=== PATIENT | male | born 1980 | race Caucasian/White ===

== ENCOUNTER 2018-04-18 07:47 | Emergency (ER) | payer OTHER ==
[2018-04-18] MEDS: FLUCONAZOLE 100 MG TAB PO (10:04)
[2018-04-18] MEDS: LORATADINE 10 MG TAB PO (10:04)
== END 2018-04-18 10:05 | disposition home or self-care (01) ==
LOC: M ED 07:47
DX: L29.8 Other pruritus (principal); L74.0 Miliaria rubra
CPT/HCPCS: 99282

== ENCOUNTER 2019-05-13 09:14 | Emergency (ER) | payer OTHER ==
[~2019-05-13] VITALS: Ht 180.3 cm; Wt 100.0 kg
[2019-05-13] MEDS ORDERED: NON-325T5 PO (09:21)
[2019-05-13] MEDS ORDERED: TERB250T12 PO (09:21)
[2019-05-13] MEDS ORDERED: IBUP-1022 PO (09:21)
[2019-05-13] MEDS ORDERED: NS 1,000 ML IV ONE (10:15)
[2019-05-13] MEDS ORDERED: MORPHINE 4 MG/ML 1ML VIAL/SYRINGE (J2270) IV ONE (10:15)
[2019-05-13] MEDS ORDERED: ONDANSETRON 4MG/2ML VIAL (J2405) IV ONE (10:45)
[2019-05-13 10:50] LABS: BASO # 0.1 10^3/uL (0.0-0.2); BASO % 1.1 % (0.0-1.0); EOS # 0.2 10^3/uL (0.0-0.50); EOS % 4.7 % (0.0-3.0); HEMATOCRIT 48.1 % (42.0-52.0); HEMOGLOBIN 16.1 g/dl (13.5-17.5); LYMPH # 1.8 10^3/uL (1.5-4.5); LYMPH % 37.9 % (24.0-44.0); MEAN CORPUSCULAR HEMOGLOBIN 30.1 pg (27.0-33.0); MEAN CORPUSCULAR HGB CONC 33.5 g/dl (32.0-36.5); MEAN CORPUSCULAR VOLUME 89.9 fl (80.0-96.0); MONO # 0.5 10^3/uL (0.0-0.8); MONO % 9.9 % (0.0-5.0); NEUTROPHILS # 2.1 10^3/uL (1.8-7.7); NEUTROPHILS % 45.8 % (36.0-66.0); PLATELET COUNT, AUTOMATED 188 10^3/uL (150-450); RED BLOOD COUNT 5.35 10^6/uL (4.30-6.10); WHITE BLOOD COUNT 4.7 10^3/uL (4.0-10.0)
[2019-05-13 11:12] LABS: ALBUMIN 4.4 GM/DL (3.2-5.2); BILIRUBIN,DIRECT 0.1 MG/DL (0.0-0.2); BILIRUBIN,TOTAL 0.5 MG/DL (0.2-1.0); TOTAL PROTEIN 7.7 GM/DL (6.4-8.2)
[2019-05-13] MEDS ORDERED: ISOVUE-370 76% 100ML VIAL (Q9967) As Ordered ONE (11:21)
[2019-05-13] MEDS ORDERED: BACT800T5 PO (12:22)
[2019-05-13 12:35] VITALS: BP 139/93
--- NOTE | 2019-05-13 12:38 | REP ---
CT ABDOMEN AND PELVIS WITH IV CONTRAST: TECHNIQUE: Axial contrast enhanced images from the lung bases to the pubic symphysis using 100 mL Isovue 370 intravenous contrast material with multiplanar reformations. Visualized lung bases are clear. The liver, spleen, adrenals, pancreas and kidneys are unremarkable. There is no abdominal aortic aneurysm. There is no adenopathy. There is no free air or free fluid. There is no bowel wall thickening. No pelvis mass is seen. Urinary bladder is mildly distended and grossly unremarkable. Reportedly, the patient had surgery for a hernia repair with an incision in the midline of the anterior abdominal wall. There is diffuse streaky density in the superficial anterior abdominal wall to midline. This is compatible with edema, with possible inflammatory change and cellulitis. No abscess collection is seen. IMPRESSION: In the midline of the anterior abdominal wall, there is streaky density representing edema and possible inflammatory change/cellulitis. No abscess collection is seen. No intra-abdominal or pelvic abnormality seen. Electronically Signed by Erikc Parker MD 05/13/2019 01:20 P
== END 2019-05-13 12:37 | disposition home or self-care (01) ==
LOC: M ED 09:14
DX: L02.211 Cutaneous abscess of abdominal wall (principal); Z98.890 Other specified postprocedural states; Z79.899 Other long term (current) drug therapy
CPT/HCPCS: 74177; 80047; 80076; 83605; 85025; 87040; 87070; 87077; 96361; 96374; 96375; 99284; J2270; J2405; Q9967

== ENCOUNTER 2021-03-11 17:53 | Inpatient (IN) | payer OTHER ==
[~2021-03-11] VITALS: Ht 180.3 cm; Wt 113.8 kg
[~2021-03-11 17:53] MED LIST: ACET32TAB PO; BACT800T5 PO; IBUP-1022 PO; TERB250T12 PO
[2021-03-11] MEDS ORDERED: CYCL5TAB PO (18:12)
[2021-03-11] MEDS ORDERED: BUSP15TA47 PO (18:12)
[2021-03-11] MEDS ORDERED: MELO15TA28 PO (18:12)
[2021-03-11] MEDS ORDERED: LOSA50TA5 PO (18:12)
[2021-03-11] MEDS ORDERED: AIMO70IN SQ (18:12)
[2021-03-11] MEDS ORDERED: METO1TAB7 PO (18:12)
[2021-03-11] MEDS ORDERED: AMIT75TA PO (18:12)
[2021-03-11] MEDS ORDERED: ESCITALOPRAM PO (18:12)
[2021-03-11] MEDS ORDERED: NS 1,000 ML IV SCH (18:50)
[2021-03-11] MEDS ORDERED: METOCLOPRAMIDE INJ 10MG/2ML VIAL (J2765 PER 1) IV ONE (18:50)
[2021-03-11] MEDS ORDERED: MECLIZINE 25 MG TABLET PO ONE (18:50)
--- NOTE | 2021-03-11 19:37 | ECGEPIP ---
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
--- NOTE | 2021-03-11 19:45 | REP ---
INDICATION: CHEST PAIN COMPARISON: None. TECHNIQUE: PA and lateral. FINDINGS: The mediastinum and cardiac silhouette are normal. The lung workman are clear and without acute consolidation, effusion, or pneumothorax. The skeletal structures are intact and normal. IMPRESSION: No acute cardiopulmonary process. <Electronically signed by Prudencio Foster > 03/11/211940
--- NOTE | 2021-03-11 20:53 | REPVR ---
PROCEDURE INFORMATION: Exam: CT Head Without Contrast Exam date and time: 03/11/2021 7:39 PM Age: 41 years old Clinical indication: Pain; Headache; Additional info: Headache vomiting TECHNIQUE: Imaging protocol: Computed tomography of the head without contrast. Radiation optimization: All CT scans at this facility use at least one of these dose optimization techniques: automated exposure control; mA and/or kV adjustment per patient size (includes targeted exams where dose is matched to clinical indication); or iterative reconstruction. COMPARISON: No relevant prior studies available. FINDINGS: Brain: There is no acute cortical infarction, intracranial hemorrhage or mass. Cerebral ventricles: No ventriculomegaly. Paranasal sinuses: Visualized sinuses are unremarkable. No fluid levels. Mastoid air cells: Visualized mastoid air cells are well aerated. Bones/joints: Unremarkable. No acute fracture. Soft tissues: Unremarkable. IMPRESSION: No acute intracranial findings. Electronically signed by: Linnette Shah On 03/11/2021 20:53:07 PM
[2021-03-11 21:06] LABS: BASO % 0.5 % (0.0-1.0); EOS # 0.1 10^3/uL (0.0-0.5); EOS % 0.7 % (0.0-3.0); HEMATOCRIT 46.3 % (42.0-52.0); HEMOGLOBIN 15.4 g/dl (13.5-17.5); LYMPH # 1.2 10^3/uL (1.5-5.0); LYMPH % 15.4 % (24.0-44.0); MEAN CORPUSCULAR HEMOGLOBIN 29.2 pg (27.0-33.0); MEAN CORPUSCULAR HGB CONC 33.3 g/dl (32.0-36.5); MEAN CORPUSCULAR VOLUME 87.7 fl (80.0-96.0); MONO # 0.5 10^3/uL (0.0-0.8); MONO % 5.8 % (2.0-8.0); NEUTROPHILS # 6.2 10^3/uL (1.5-8.5); NEUTROPHILS % 77.2 % (36.0-66.0); PLATELET COUNT, AUTOMATED 189 10^3/uL (150-450); RED BLOOD COUNT 5.28 10^6/uL (4.30-6.10)
[2021-03-11 22:04] LABS: INR 0.9; PROTHROMBIN TIME 12.3 SECONDS (12.5-14.3)
[2021-03-11 22:07] LABS: D-DIMER QUANT 359.07 ng/ml (<500)
[2021-03-11 22:54] LABS: ALBUMIN 3.8 GM/DL (3.2-5.2); ALT/SGPT 54 U/L (12-78); BILIRUBIN,DIRECT 0.1 MG/DL (0.0-0.2); BILIRUBIN,TOTAL 0.6 MG/DL (0.2-1.0); BLOOD UREA NITROGEN 12 MG/DL (7-18); CALCIUM LEVEL 9.7 MG/DL (8.5-10.1); CARBON DIOXIDE LEVEL 29 MEQ/L (21-32); CHLORIDE LEVEL 103 MEQ/L (98-107); CK-MB VALUE MASS 4.1 NG/ML (<3.6); CPK CREATINE PHOSPHOKINASE 4402 U/L (39-308); CREATININE FOR GFR 0.88 MG/DL (0.70-1.30); FREE T4 0.97 NG/DL (0.76-1.46); GLOMERULAR FILTRATION RATE > 60.0 (>60); GLUCOSE, FASTING 111 MG/DL (70-100); MB/CK RELATIVE INDEX 0.09 (< OR =4); NT-PRO BNP < 5 PG/ML (<125); POTASSIUM SERUM 3.9 MEQ/L (3.5-5.1); SODIUM LEVEL 139 MEQ/L (136-145); THYROID STIMULATING HORMONE 0.772 uIU/ML (0.358-3.740); TOTAL PROTEIN 7.5 GM/DL (6.4-8.2); TROPONIN I < 0.02 NG/ML (< 0.10)
--- NOTE | 2021-03-11 23:37 | HPEPDOC ---
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 He tells me that had the symptoms in the past. Tells me during the episode after vomiting he felt substernal chest pain it does not radiate lasted 30 seconds and felt like a burning sensation he denies a history of GERD. He tells me since being in the hospital he is no longer sweating and not having any chest pain but he has still feels dizzy and when ED staff tried to stand him up he almost fell over. He doesn't feel nauseous and hasn't vomited since being here. He does endorse some lower extremity muscle pain bilaterally he states he stands up on his feet all day long at work but he hasn't been working out extensively although he does admit to not drink he has much water as she should be. In the emergency department patient was unable to stand without almost falling to the side and Dr. Purcell ordered an MRI/MRA brain. Patient will be admitted to the hospital service due to this vertigo of unknown etiology as well as rhabdomyolysis as well as to rule out ACS. PAST MEDICAL/SURGICAL HISTORY: Hypertension Hyperlipidemia diet controlled Repair of abdominal hernia 3X Appendectomy SOCIAL HISTORY: Denies alcohol use Denies tobacco use Denies illicit drug use FAMILY HISTORY: Reviewed and none contributory to this admission ALLERGIES: Please see below. REVIEW OF SYSTEMS: 10 point review of systems complete all negative otherwise stated in HPI HOME MEDICATIONS: Please see below. PHYSICAL EXAMINATION: Constitutional: Awake and alert, in no apparent distress ENT: Sclera are clear. Mucosa is moist. Respiratory: Lungs CTA bilaterally. No respiratory distress. Cardiovascular: RRR S1 and S2 are normal Gastrointestinal: Abdomen is soft, non distended, non tender, BS present. Musculoskeletal: No lower extremity edema. Able to move all 4 extremities freely Neurologic: No focal neurological deficit side from gait instability when standing up Mental Status: A&O x3, normal affect Skin: Surgical incision scar on abdomen. LABORATORY DATA: See below. IMAGING: See chart MICROBIOLOGY: Please see below. ASSESSMENT/PLAN 41-year-old male history of hypertension presents with sudden onset dizziness, diaphoresis, and vomiting found to have vertigo of unknown etiology, rhabdomy olysis and atypical chest pain rule out acute coronary syndrome. Admitted for further medical workup and management. # Vertigo: Unknown etiology at this time. Assisted ambulation only. Fall precautions. No salt diet. Fu MRI/MRA brain. IVFs. Consider neurology consultation. # Rhabdomyolysis: Could be from dehydration/vomiting. IVFs. Initial CPK 4400. Trend CPK. # Rule out ACS: Atypical CP, onset after vomiting. Trend trops/EKGs. First trop negative. First EKG ESR. # HLD: diet controlled, fu with PCP # Obesity: BMI 34.9. Complicates care. # DVT prophylaxis: Yingnox A Madai Hospitalist Vital Signs Vital Signs Date Time Temp Pulse Resp B/P (MAP) Pulse Ox O2 Delivery O2 Flow Rate FiO2 03/11/21 23:15 86 99 03/11/21 23:00 148/76 (100) 03/11/21 20:02 18 03/11/21 17:54 98.9 Room Air Laboratory Data Labs 24H Laboratory Tests 2 03/11/21 20:55: Immature Granulocyte % (Auto) 0.4, Neutrophils (%) (Auto) 77.2H, Lymphocytes (%) (Auto) 15.4L, Monocytes (%) (Auto) 5.8, Eosinophils (%) (Auto) 0.7, Basophils (%) (Auto) 0.5, Neutrophils # (Auto) 6.2, Lymphocytes # (Auto) 1.2L, Monocytes # (Auto) 0.5, Eosinophils # (Auto) 0.1, Basophils # (Auto) 0.0, Nucleated Red B lood Cells % (auto) 0.0 03/11/21 21:38: Prothrombin Time 12.3, Prothromb Time International Ratio 0.90, Activated Partial Thromboplast Time 20.0L, D-Dimer, Quantitative 359.07 03/11/21 22:05: Anion Gap 7L, Glomerular Filtration Rate > 60.0, Calcium Level 9.7, Total Bilirubin 0.6, Direct Bilirubin 0.1, Aspartate Amino Transf (AST/SGOT) 70H, Alanine Aminotransferase (ALT/SGPT) 54, Alkaline Phosphatase 67, Total Creatine Kinase 4402H, Creatine Kinase MB 4.1H, Creatine Kinase MB Relative Index 0.09, Troponin I < 0.02, LJ-Asq-J-Type Natriuretic Peptide < 5, Total Protein 7.5, Albumin 3.8, Albumin/Globulin Ratio 1.0, Thyroid Stimulating Hormone (TSH) 0.772, Free Thyroxine 0.97 CBC/BMP Laboratory Tests 03/11/21 20:55 03/11/21 22:05 Home Medications Scheduled Amitriptyline HCl (Amitriptyline HCl) 75 Mg Tablet, 75 MG PO QHS Buspirone HCl (Buspirone HCl) 15 Mg Tablet, 15 MG PO BID Erenumab-Aooe (Aimovig Autoinjector) 70 Mg/1 Ml Auto.injct, SQ monthly Losartan/Hydrochlorothiazide (Losartan-Hctz 50-12.5 mg Tab) 1 Each Tablet, 1 TAB PO DAILY Meloxicam (Meloxicam) 15 Mg Tablet, 15 MG PO DAILY Metoprolol Succinate (Metoprolol Succinate) 50 Mg Tab.er.24h, 50 MG PO DAILY Scheduled PRN Cyclobenzaprine HCl (Cyclobenzaprine HCl) 5 Mg Tablet, 5 MG PO DAILY PRN for vasu n Allergies Coded Allergies: tuberculin,PPD,multi-puncture (Verified Adverse Reaction, Intermediate, "becomes a wound", 05/13/19) A-FIB/CHADSVASC A-FIB History Current/History of A-Fib/PAF?: No CODY MOTTA MD Mar 11, 2021 23:37
[2021-03-11] MEDS ORDERED: ACETAMINOPHEN TAB 650MG DOSE (2X325MG) PO PRN (23:40)
[2021-03-12 00:26] LABS: RSV AMPLIFICATION NEGATIVE (NEGATIVE)
[2021-03-12] MEDS: NS 1,000 ML IV SCH ×3 (00:30→08:46)
[2021-03-12 02:00] VITALS: BP 137/93
--- NOTE | 2021-03-12 02:11 | REPVR ---
PROCEDURE INFORMATION: Exam: MR Head Without Contrast Exam date and time: 03/12/2021 1:20 AM Age: 41 years old Clinical indication: Dizziness, vomiting, nausea, high blood pressure, and headache. Additional info: CVA TECHNIQUE: Imaging protocol: MR of the head without contrast. COMPARISON: CT Head without contrast 03/11/2021 7:37 PM FINDINGS: Brain: There is no acute infarct. No acute intracranial hemorrhage is seen. No mass, mass effect, midline shift, or herniation is noted. The cortical gyration pattern, basal ganglia, thalami, brainstem, and cerebellum are normal in appearance. Cerebral ventricles: Normal. No hydrocephalus. Bones/joints: Unremarkable. Paranasal sinuses: There are mucous retention cysts in the maxillary sinuses, left greater right. There is mild mucosal thickening in the right frontal sinus, both ethmoid sinuses, and both sphenoid sinuses. No air-fluid levels are seen in the sinuses. Mastoid air cells: The mastoid air cells are well aerated. Orbital cavity: The globes and orbits are unremarkable. Soft tissues: Unremarkable. No soft tissue fluid collection. IMPRESSION: Normal MRI brain without contrast. No acute infarct or acute intracranial hemorrhage. Electronically signed by: Keanu Barfield On 03/12/2021 02:11:19 AM
--- NOTE | 2021-03-12 02:16 | REPVR ---
PROCEDURE INFORMATION: Exam: MRA Head Without Contrast; Arteriography Exam date and time: 03/12/2021 1:20 AM Age: 41 years old Clinical indication: Dizziness and giddiness and other: Vomiting hbp, nausea h/a, ; additional info: CVA TECHNIQUE: Imaging protocol: Magnetic resonance angiography head without contrast. Exam focused on the arteries. COMPARISON: CT Head without contrast 03/11/2021 7:37 PM FINDINGS: ANTERIOR CIRCULATION: Right internal carotid artery: Intracranial segment is patent with no significant stenosis. No aneurysm. Right middle cerebral artery: No occlusion or significant stenosis. No aneurysm. Right anterior cerebral artery: No occlusion or significant stenosis. No aneurysm. Left internal carotid artery: Intracranial segment is patent with no significant stenosis. No aneurysm. Left middle cerebral artery: No occlusion or significant stenosis. No aneurysm. Left anterior cerebral artery: No occlusion or significant stenosis. No aneurysm. POSTERIOR CIRCULATION: Right vertebral artery: No occlusion or significant stenosis. No aneurysm. Left vertebral artery: No occlusion or significant stenosis. No aneurysm. Basilar artery: No occlusion or significant stenosis. No aneurysm. Right posterior cerebral artery: No occlusion or significant stenosis. No aneurysm. Left posterior cerebral artery: No occlusion or significant stenosis. No aneurysm. IMPRESSION: No stenosis or occlusion. Electronically signed by: Juan Barriga On 03/12/2021 02:16:16 AM
[2021-03-12 06:00] VITALS: BP 136/93
[2021-03-12 07:12] LABS: HEMATOCRIT 44.5 % (42.0-52.0); HEMOGLOBIN 14.6 g/dl (13.5-17.5); MEAN CORPUSCULAR HEMOGLOBIN 28.7 pg (27.0-33.0); MEAN CORPUSCULAR HGB CONC 32.8 g/dl (32.0-36.5); MEAN CORPUSCULAR VOLUME 87.4 fl (80.0-96.0); PLATELET COUNT, AUTOMATED 202 10^3/uL (150-450); RED BLOOD COUNT 5.09 10^6/uL (4.30-6.10); WHITE BLOOD COUNT 6.1 10^3/uL (4.0-10.0)
[2021-03-12 08:05] LABS: BLOOD UREA NITROGEN 9 MG/DL (7-18); CALCIUM LEVEL 8.9 MG/DL (8.5-10.1); CARBON DIOXIDE LEVEL 28 MEQ/L (21-32); CHLORIDE LEVEL 105 MEQ/L (98-107); CPK CREATINE PHOSPHOKINASE 3914 U/L (39-308); CREATININE FOR GFR 0.85 MG/DL (0.70-1.30); GLOMERULAR FILTRATION RATE > 60.0 (>60); GLUCOSE, FASTING 99 MG/DL (70-100); POTASSIUM SERUM 3.8 MEQ/L (3.5-5.1); SODIUM LEVEL 139 MEQ/L (136-145)
[2021-03-12] MEDS: ENOXAPARIN 40MG/0.4ML SYRINGE (J1650 PER 10MG) SC SCH (08:46)
[2021-03-12 14:00] VITALS: BP 132/77
[2021-03-12 20:05] VITALS: BP 136/82
--- NOTE | 2021-03-12 21:55 | IPNPDOC ---
Date Seen The patient was seen on 03/12/21. Progress Note SUBJECTIVE: Juan was seen and examined this morning by the hospitalist service while lying in bed. He reports some mild dizziness with ambulation OBJECTIVE PHYSICAL EXAMINATION: VITAL SIGNS: Please see below. GENERAL: Pleasant black male lying upright in bed. No acute distress. HEENT: Normocephalic, atraumatic. Noninjected sclera. There appears to be some potential mild icterus of the left eye sclera. No significant conjunctival pallor. ORAL CAVITY: Moist mucous membranes with no fragile erythema or exudate appreciated. NECK: Trachea midline. Neck is supple. No lymphadenopathy is appreciated. CARDIOVASCULAR: Regular rate, regular rhythm. Normal S1, S2. No murmurs or rubs are appreciated. RESPIRATORY: Clear to hospital patient bilaterally with no adventitious breath sounds appreciated. Breathing room air. No accessory muscle use. Speaking full senses. ABDOMINAL: Moderately obese abdomen. There is no tenderness or distention. No guarding, rigidity. Normoactive bowel sounds throughout. EXTREMITIES: There are healed scars over bilateral shins with some mild distal swelling but no pitting edema. 2+ radial pulses bilaterally. NEUROLOGICAL: Non-dysarthric speech. No focal deficits appreciated. Negative Romberg test. Cranial nerves III through XII grossly intact. Haylee-Hallpike maneu jesus did not reproduce patient's dizziness and there was no visible nystagmus appreciated. Patient ambulated around the room for our service, and dizziness was not replicated either. PSYCHOLOGICAL: Pleasant mood. Affect appears appropriate. LABORATORY DATA, IMAGING STUDIES, MICROBIOLOGY: Please see below. ASSESSMENT AND PLAN: This is a pleasant 41yo male w/ h/o htn and hyperlipidemia who presented to the ED in the late afternoon of 03/11/21 with the chief complaint of dizziness with associated nausea and vomiting with intermittent post emesis chest pain. He was worked up for possible vertigo with multiple imaging studies of the brain. The patient was also found to have rhabdomyolysis and started on aggressive IV fluid hydration. #Rhabdomyolysis -Patient continues to receive 200 mL an hour normal saline. He has had a good response as his creatinine kinase has decreased from 4402 3900 this morning. We will continue to monitor his CK moving forward, as well as administering aggressive IV fluid hydration. -In terms of the source, this is unclear at this time. Patient suffered no crush injuries, nor any recent excessive exercise. He did have a swimming class for 45 minutes roughly 10 days before presentation, but has done similar classes in the past with little side effects. #Dizziness -Patient has had CT head without contrast, brain MRA, and a brain MRI which showed no acute processes. In terms of hemorrhage, infarct, or other significant pathology. -This potentially could've been secondary to dehydration, although patient reports maintaining good oral hydration and food intake. He does report not taking his blood pressure medication. -Patient was examined both yesterday and today by physical therapy and they were unable to reproduce his dizziness symptoms. They recommended vestibular treatment as outpatient. -We spoke with Dr. Reilly, the on-call neurologist, who recommended outpatient follow-up for possible vestibular migraine as well as an outpatient follow-up with an proofsheet corrector (Dr. Chávez) at office [place] for VNG (vestibular) testing. -Upon our examination today, patient had a negative Romberg sign with grossly intact cranial nerves III through XII as well as a nonantalgic gait and negative Haylee-Hallpike maneuver. #H/o HTN -Patient's home antihypertensive medications were initially held on admission due to the dizziness. His pressures have remained relatively well controlled as of now. We will further assess for need to continue home meds moving forward. #DVT Prophylaxis: C/w subcutaneous Lovenox DISPOSITION: Pending improvement of patient's rhabdomyolysis with outpatient vestibular workup upon discharge. Attending Attestation: Patient independently seen and examined. I have discussed in detail with the resident the findings and plan of treatment as documented by the resident. I agree with their findings and treatment plan. I will continue to follow the patient during this hospital stay. VS, I&O, 24H, Vicchi lisbon [facility]the Vital Signs/I&O Vital Signs Date Time Temp Pulse Resp B/P (MAP) Pulse Ox O2 Delivery O2 Flow Rate FiO2 03/12/21 20:05 97.8 80 16 136/82 (100) 96 Room Air I&O- Last 24 Hours up to 6 AM 03/12/21 06:00 Intake Total 1350 ml Output Total 350 ml Balance 1000 ml Laboratory Data 24H LABS Laboratory Tests 2 03/11/21 21:38: Prothrombin Time 12.3, Prothromb Time International Ratio 0.90, Activated Partial Thromboplast Time 20.0L, D-Dimer, Quantitative 359.07 03/11/21 22:05: Anion Gap 7L, Glomerular Filtration Rate > 60.0, Calcium Level 9.7, Total Bilirubin 0.6, Direct Bilirubin 0.1, Aspartate Amino Transf (AST/SGOT) 70H, A lanine Aminotransferase (ALT/SGPT) 54, Alkaline Phosphatase 67, Total Creatine Kinase 4402H, Creatine Kinase MB 4.1H, Creatine Kinase MB Relative Index 0.09, Troponin I < 0.02, NC-Dtj-A-Type Natriuretic Peptide < 5, Total Protein 7.5, Albumin 3.8, Albumin/Globulin Ratio 1.0, Thyroid Stimulating Hormone (TSH) 0.772, Free Thyroxine 0.97 03/11/21 23:39: Coronavirus (COVID-19)(PCR) NEGATIVE, Influenza Type A (RT-PCR) NEGATIVE, Influenza Type B (RT-PCR) NEGATIVE, Respiratory Syncytial Virus (PCR) NEGATIVE 03/12/21 07:01: Anion Gap 6L, Glomerular Filtration Rate > 60.0, Calcium Level 8.9, Total Creatine Kinase 3914H, Nucleated Red Blood Cells % (auto) 0.0 CBC/BMP Laboratory Tests 03/11/21 22:05 03/12/21 07:01 CHELI MENDOZA D.O. Mar 12, 2021 21:55 AMY MILLARD MD Mar 13, 2021 06:52
[2021-03-13] MEDS: NS 1,000 ML IV SCH ×4 (01:53→17:08)
[2021-03-13 06:09] VITALS: BP 137/87
[2021-03-13 06:41] LABS: BASO % 0.6 % (0.0-1.0); EOS # 0.2 10^3/uL (0.0-0.5); EOS % 3.5 % (0.0-3.0); HEMATOCRIT 43.4 % (42.0-52.0); HEMOGLOBIN 14.3 g/dl (13.5-17.5); LYMPH # 1.6 10^3/uL (1.5-5.0); LYMPH % 30.9 % (24.0-44.0); MEAN CORPUSCULAR HEMOGLOBIN 28.8 pg (27.0-33.0); MEAN CORPUSCULAR HGB CONC 32.9 g/dl (32.0-36.5); MEAN CORPUSCULAR VOLUME 87.3 fl (80.0-96.0); MONO # 0.5 10^3/uL (0.0-0.8); MONO % 10.2 % (2.0-8.0); NEUTROPHILS # 2.8 10^3/uL (1.5-8.5); PLATELET COUNT, AUTOMATED 194 10^3/uL (150-450); RED BLOOD COUNT 4.97 10^6/uL (4.30-6.10); WHITE BLOOD COUNT 5.2 10^3/uL (4.0-10.0)
[2021-03-13 07:19] LABS: ALBUMIN 3.5 GM/DL (3.2-5.2); ALT/SGPT 51 U/L (12-78); BILIRUBIN,TOTAL 0.6 MG/DL (0.2-1.0); BLOOD UREA NITROGEN 9 MG/DL (7-18); CALCIUM LEVEL 8.6 MG/DL (8.5-10.1); CARBON DIOXIDE LEVEL 29 MEQ/L (21-32); CHLORIDE LEVEL 107 MEQ/L (98-107); CPK CREATINE PHOSPHOKINASE 1767 U/L (39-308); CREATININE FOR GFR 0.84 MG/DL (0.70-1.30); GLOMERULAR FILTRATION RATE > 60.0 (>60); GLUCOSE, FASTING 93 MG/DL (70-100); SODIUM LEVEL 141 MEQ/L (136-145); TOTAL PROTEIN 6.5 GM/DL (6.4-8.2)
[2021-03-13] MEDS: ENOXAPARIN 40MG/0.4ML SYRINGE (J1650 PER 10MG) SC SCH (08:15)
[2021-03-13 14:00] VITALS: BP 126/83
--- NOTE | 2021-03-13 18:48 | IPNPDOC ---
Text Note Date of Service The patient was seen on 03/13/21. NOTE SUBJECTIVE: Patient seen and examined at bedside. No acute overnight events reported. His IV fluids were decreased to 150 cc/hr. This morning he voices no medial complaints. States his dizziness has essentially resolved. Denied any complaints overnight. OBJECTIVE PHYSICAL EXAMINATION: VITAL SIGNS: Please see below. GENERAL: NAD, lying comfortably in bed HEENT: NC/AT, EOMI Heart: +S1S2, RRR Lngs: CTA B/L Abd: obese, soft, NT, +BS Ext: no edema Neuro: no focal deficits. LABORATORY DATA, IMAGING STUDIES, MICROBIOLOGY: Please see below. ASSESSMENT AND PLAN: This is a pleasant 41yo male w/ h/o htn and hyperlipidemia who presented to the ED in the late afternoon of 03/11/21 with the chief complaint of dizziness with associated nausea and vomiting with intermittent post emesis chest pain. He was worked up for possible vertigo with multiple imaging studies of the brain. The patient was also found to have rhabdomyolysis and started on aggressive IV fluid hydration. #Rhabdomyolysis - continues to improve - CK trending down - continuing with IV fluids for now - likely dc in am, with trial of oral fluid intake to continue downtrending CK - etiology not clear as patient denies any typical inciting factors including exercise, falls, trauma, seizure #Dizziness - imaging unrevealing - symptoms have resolved - previously discussed with neurology - recommended outpatient follow-up for possible vestibular migraine as well as an outpatient follow-up with an framing mechanic (Dr. Chávez) at office [place] for VNG (vestibular) testing. #H/o HTN -Patient's home antihypertensive medications were initially held on admission due to the dizziness. His pressures have remained relatively well controlled as of now. We will further assess for need to continue home meds moving forward. #MARION - patient states pressure of 6mmH2O, can use inpatient device for now #DVT Prophylaxis: C/w subcutaneous Lovenox DISPOSITION: Pending improvement of patient's rhabdomyolysis with outpatient vestibular workup upon discharge. VS,Fishbone, I+O VS, Fishbone, I+O Laboratory Tests 03/13/21 06:07 Vital Signs Date Time Temp Pulse Resp B/P (MAP) Pulse Ox O2 Delivery O2 Flow Rate FiO2 03/13/21 14:00 98.1 107 18 126/83 (97) 97 Room Air I&O- Last 24 Hours up to 6 AM 03/13/21 06:00 Intake Total 4450 ml Output Total 3275 ml Balance 1175 ml AMY MILLARD MD Mar 13, 2021 18:48
[2021-03-13 22:00] VITALS: BP 125/83
[2021-03-14 05:09] VITALS: BP 130/82
[2021-03-14] MEDS: NS 1,000 ML IV SCH ×2 (05:09→10:29)
[2021-03-14 07:02] LABS: BASO % 0.7 % (0.0-1.0); EOS # 0.2 10^3/uL (0.0-0.5); EOS % 3.4 % (0.0-3.0); HEMATOCRIT 43.8 % (42.0-52.0); HEMOGLOBIN 14.6 g/dl (13.5-17.5); LYMPH # 1.7 10^3/uL (1.5-5.0); LYMPH % 30.9 % (24.0-44.0); MEAN CORPUSCULAR HEMOGLOBIN 29.1 pg (27.0-33.0); MEAN CORPUSCULAR HGB CONC 33.3 g/dl (32.0-36.5); MEAN CORPUSCULAR VOLUME 87.3 fl (80.0-96.0); MONO # 0.6 10^3/uL (0.0-0.8); MONO % 10.8 % (2.0-8.0); PLATELET COUNT, AUTOMATED 196 10^3/uL (150-450); RED BLOOD COUNT 5.02 10^6/uL (4.30-6.10); WHITE BLOOD COUNT 5.6 10^3/uL (4.0-10.0)
[2021-03-14 07:34] LABS: ALBUMIN 3.5 GM/DL (3.2-5.2); ALT/SGPT 46 U/L (12-78); BILIRUBIN,TOTAL 0.5 MG/DL (0.2-1.0); BLOOD UREA NITROGEN 6 MG/DL (7-18); CALCIUM LEVEL 8.7 MG/DL (8.5-10.1); CARBON DIOXIDE LEVEL 27 MEQ/L (21-32); CHLORIDE LEVEL 107 MEQ/L (98-107); CPK CREATINE PHOSPHOKINASE 996 U/L (39-308); CREATININE FOR GFR 0.81 MG/DL (0.70-1.30); GLOMERULAR FILTRATION RATE > 60.0 (>60); GLUCOSE, FASTING 94 MG/DL (70-100); POTASSIUM SERUM 4.5 MEQ/L (3.5-5.1); SODIUM LEVEL 140 MEQ/L (136-145); TOTAL PROTEIN 6.8 GM/DL (6.4-8.2)
[2021-03-14] MEDS: ENOXAPARIN 40MG/0.4ML SYRINGE (J1650 PER 10MG) SC SCH (07:42)
--- NOTE | 2021-03-14 13:27 | DS.PDOC ---
Discharge Summary General Date of Admission Mar 11, 2021 at 23:37 Date of Discharge 03/14/2021 Discharge Summary PROCEDURES PERFORMED DURING STAY: [None]. DISCHARGE DIAGNOSES: #Rhabdomyolysis #vertigo/BPV/vestibular migraines #MARION/CPAP #HTN COMPLICATIONS/CHIEF COMPLAINT: Ataxic Gait,Rhabdomyolysis,Vertigo. 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 He tells me that had the symptoms in the past. Tells me during the episode after vomiting he felt substernal chest pain it does not radiate lasted 30 seconds and felt like a burning sensation he denies a history of GERD. He tells me since being in the hospital he is no longer sweating and not having any chest pain but he has still feels dizzy and when ED staff tried to stand him up he almost fell over. He doesn't feel nauseous and hasn't vomited since being here. He does endorse some lower extremity muscle pain bilaterally he states he stands up on his feet all day long at work but he hasn't been working out extensively although he does admit to not drink he has much water as she should be. In the emergency department patient was unable to stand without almost falling to the side and Dr. Purcell ordered an MRI/MRA brain. Patient will be admitted to the hospital service due to this vertigo of unknown etiology as well as rhabdomyolysis as well as to rule out ACS. HOSPITAL COURSE: Patient admitted for further evaluation and treatment. Patient symptoms of dizziness resolved throughout his hospital stay. He was seen on consultation by physical therapy with vestibular treatments. Case was also discussed with [facility] who agreed with physical therapy recommendations for outpatient follow- up for vestibular evaluation by an lens fabricating machine tender. His rhabdomyolysis was treated with IV fluids and his CK trended down significantly throughout his hospital stay. Hospital stay was otherwise unremarkable. Patient is discharged home in stable condition with outpatient follow-up as directed. DISCHARGE MEDICATIONS: Please see below. ALLERGIES: Please see below. PHYSICAL EXAMINATION ON DISCHARGE: VITAL SIGNS: Please see below. GENERAL: NAD, lying comfortably in bed HEENT: NC/AT, EOMI Heart: +S1S2, RRR Lngs: CTA B/L Abd: obese, soft, NT, +BS Ext: no edema Neuro: no focal deficits. LABORATORY DATA: Please see below. ACTIVITY: [As tolerated]. DISCHARGE PLAN: Discharge home DISCHARGE INSTRUCTIONS: 1. Follow-up with primary care provider in 3-5 days. 2. Avoid strenuous activity for 3 days. 3. Follow up with lens fabricating machine tender as directed. DISCHARGE CONDITION: [Stable]. TIME SPENT ON DISCHARGE: 35 minutes. Vital Signs/I&Os Vital Signs Date Time Temp Pulse Resp B/P (MAP) Pulse Ox O2 Delivery O2 Flow Rate FiO2 03/14/21 05:09 97.2 82 16 130/82 (98) 98 Room Air 03/14/21 04:46 21 I&O- Last 24 Hours up to 6 AM 03/14/21 06:00 Intake Total 2980 ml Output Total 4300 ml Balance -1320 ml Laboratory Data Labs 24H Laboratory Tests 2 03/14/21 06:41: Immature Granulocyte % (Auto) 0.2, Neutrophils (%) (Auto) 54.0, Lymphocytes (%) (Auto) 30.9, Monocytes (%) (Auto) 10.8H, Eosinophils (%) (Auto) 3.4H, Basophils (%) (Auto) 0.7, Neutrophils # (Auto) 3.0, Lymphocytes # (Auto) 1.7, Monocytes # (Auto) 0.6, Eosinophils # (Auto) 0.2, Basophils # (Auto) 0.0, Nucleated Red B lood Cells % (auto) 0.0, Anion Gap 6L, Glomerular Filtration Rate > 60.0, Calcium Level 8.7, Total Bilirubin 0.5, Aspartate Amino Transf (AST/SGOT) 50H, Alanine Aminotransferase (ALT/SGPT) 46, Alkaline Phosphatase 58, Total Creatine Kinase 996H, Total Protein 6.8, Albumin 3.5, Albumin/Globulin Ratio 1.1 CBC/BMP Laboratory Tests 03/14/21 06:41 Discharge Medications Scheduled Amitriptyline HCl (Amitriptyline HCl) 75 Mg Tablet, 75 MG PO QHS, (Reported) Buspirone HCl (Buspirone HCl) 15 Mg Tablet, 15 MG PO BID, (Reported) Erenumab-Aooe (Aimovig Autoinjector) 70 Mg/1 Ml Auto.injct, SQ monthly, (Reported) Losartan/Hydrochlorothiazide (Losartan-Hctz 50-12.5 mg Tab) 1 Each Tablet, 1 TAB PO DAILY, (Reported) Meloxicam (Meloxicam) 15 Mg Tablet, 15 MG PO DAILY, (Reported) Metoprolol Succinate (Metoprolol Succinate) 50 Mg Tab.er.24h, 50 MG PO DAILY, (Reported) Scheduled PRN Cyclobenzaprine HCl (Cyclobenzaprine HCl) 5 Mg Tablet, 5 MG PO DAILY PRN for pain, (Reported) Allergies Coded Allergies: tuberculin,PPD,multi-puncture (Verified Adverse Reaction, Intermediate, "becomes a wound", 05/13/19) AMY MILLARD MD Mar 14, 2021 13:27
[2021-03-14 14:00] VITALS: BP 143/86
== END 2021-03-14 15:50 | disposition home or self-care (01) | DRG 558 ==
LOC: M ED 17:53 → M ED INP 23:37 → ENRESERV 03-12 00:43 → M MS5PR 03-12 02:00
PROVIDERS: ADMIT Family Medicine; ATTEND Internal Medicine
DX: M62.82 Rhabdomyolysis (principal); H81.10 Benign paroxysmal vertigo, unspecified ear; I10 Essential (primary) hypertension; E78.5 Hyperlipidemia, unspecified; G47.33 Obstructive sleep apnea (adult) (pediatric); G43.909 Migraine, unspecified, not intractable, without status migrainosus; R11.2 Nausea with vomiting, unspecified; R07.89 Other chest pain; E66.9 Obesity, unspecified; Z68.34 Body mass index [BMI] 34.0-34.9, adult; Z79.899 Other long term (current) drug therapy; Z79.1 Long term (current) use of non-steroidal anti-inflammatories (NSAID); Z88.7 Allergy status to serum and vaccine; Z90.49 Acquired absence of other specified parts of digestive tract

== ENCOUNTER → 2021-05-08 | Outpatient (REF) ==
[~2021-05-08] MED LIST changes: +AIMO70IN SQ; +AMIT75TA PO; +ATIV1TAB10 PO; +BUSP15TA47 PO; +CYCL5TAB PO; +ESCITALOPRAM PO; +LOSA100T45 PO; +LOSA50TA5 PO; +MELO15TA28 PO; +METO1TAB7 PO; +ONDA4TAB6 PO; -TERB250T12 PO; +TERB250T91 PO; +ZOLO100T PO
== END ==
LOC: M PLAIMG 11:55
PROVIDERS: ATTEND Internal Medicine
DX: M19.90 Unspecified osteoarthritis, unspecified site (principal)

== ENCOUNTER → 2021-05-30 | Outpatient (REF) | payer OTHER ==
[~2021-05-30] MED LIST changes: -ATIV1TAB10 PO; -LOSA100T45 PO; -ONDA4TAB6 PO; +TERB250T12 PO; -TERB250T91 PO; -ZOLO100T PO
[2021-05-30 17:59] LABS: TOTAL PROTEIN,RANDOM URINE 81.1 MG/DL (0.0-12.0)
[2021-05-30 18:20] LABS: BACTERIA, URINE AUTO NEGATIVE (NEGATIVE); RBC, URINE AUTO 0 /HPF (0-3); SQUAMOUS EPITHELIAL CELL UR AU 0 /HPF (0-6); WBC, URINE AUTO 0 /HPF (0-3)
== END ==
LOC: M LAB REF 16:51
PROVIDERS: ATTEND Internal Medicine Nephrology
DX: M62.82 Rhabdomyolysis (principal); R31.9 Hematuria, unspecified; N17.9 Acute kidney failure, unspecified; R80.9 Proteinuria, unspecified

== ENCOUNTER → 2021-06-13 | Outpatient (CLI) | payer OTHER ==
[~2021-06-13] MED LIST changes: +ISOVUE-370 76% 100ML VIAL As Ordered ONE
--- NOTE | 2021-06-14 08:34 | REP ---
INDICATION: HEMATURIA. CT urography. COMPARISON: Comparison CT study May 13, 2019. TECHNIQUE: Contrast dose: 100 ML of Isovue [address] technique: Pre contrast and dual phase post-contrast helical scanning is acquired. 3 mm axial images are re-formatted. Coronal and sagittal MPR images are included. FINDINGS: Preliminary digital microbiological laboratory technician radiograph is unremarkable. The lung bases are clear. There is no evidence of pleural effusion or upper abdominal ascites. The liver and the spleen are normal in size and homogeneous in density. No focal liver lesion is seen. No abnormality is noted in the gallbladder. Normal adrenal glands are seen. No pancreatic mass or cyst is observed. Pre contrast CT study shows no evidence of intrarenal nephrolithiasis on either side. No ureteral or bladder calculus is observed. Postcontrast images show symmetric enhancement of the kidney parenchyma. No mass or cyst is seen. Delayed scan images show no filling defect in the collecting system of either kidney. No bladder mass lesion is observed. The ureters describe a normal course to the urinary bladder. No abdominal wall defect is seen. No bony destructive lesion is observed. There is some subcutaneous fibrosis in the periumbilical region. Small and large intestinal bowel loops are unremarkable in the abdomen and pelvis. A normal appendix is seen medial to the cecum. IMPRESSION: No urinary tract calculus, mass or obstructive uropathy seen. <Electronically signed by Robert Wright > 06/14/21 [id number]
== END ==
LOC: M RAD 16:20
PROVIDERS: ATTEND Internal Medicine Nephrology
DX: R31.9 Hematuria, unspecified (principal); M62.82 Rhabdomyolysis; N17.9 Acute kidney failure, unspecified; R80.9 Proteinuria, unspecified
CPT/HCPCS: 74178; 82550; 84156; Q9967

== ENCOUNTER → 2021-07-23 | Outpatient (REF) | payer OTHER ==
[~2021-07-23] MED LIST changes: -ISOVUE-370 76% 100ML VIAL As Ordered ONE
== END ==
LOC: M LAB REF 13:24
PROVIDERS: ATTEND Internal Medicine Nephrology
DX: M62.82 Rhabdomyolysis (principal); N17.9 Acute kidney failure, unspecified; R80.9 Proteinuria, unspecified

== ENCOUNTER 2021-07-27 09:27 | Emergency (ER) | payer OTHER ==
[~2021-07-27] VITALS: Ht 180.3 cm; Wt 115.8 kg
[~2021-07-27 09:27] MED LIST changes: -TERB250T12 PO; +TERB250T91 PO
--- OUTSIDE RECORDS SUMMARY | 2021-07-27 09:33 | CCD | Continuity of Care Document ---
Author Author [facility] Organization Unknown Address [address] [place] [id number] Phone [phone] Care Team Providers Care Seam Feller Name Role Phone Bo Patel [facility] AUTM [phone] Bo Trogretel [facility] AUT Social History Type Date Description Comments Sex Unknown Allergies, Adverse Reactions, Alerts Active Allergies Reaction Severity Comments Date Tuberculin 01/09/2021 Medications Active Medications SIG Qnty Indications Ordering Provide r Date Mobic 7.5mg Tablets 1 by mouth twice a day 60tabs [facility] 021 Medrol 4mg TBPK use as direct ed 1units [facility] 02/19/2021 Mobic 7.5mg Tablets 1 by mouth twice a day 30tabs [facility] 021 Losartan Potassium/Hydrochlorothiazide 50-12.5mg Tablets take 1 tablet by mouth every day 90tabs [facility] 01/10/2021 Metoprolol Succinate ER 50mg Tablets ER 24HR take 1 tablet by mouth every day at bedtime 90tayves [facility] 01/10/2021 Ecotrin Low Strength 81mg Tablets DR [facility] 01/10/2021 Amitriptyline HCL 25mg Tablets Unknown Buspirone HCL 10mg Tablets Unknown Medications Administered in Office Medication SIG Qnty Indications Ordering Provider Date Technetium TC 99M Sestamibi Injection [facility] 01/10/2021 Vital Signs Date Vital Result Comment 05/07/2021 2:52pm Height 71 inches 5'11" Weight 251.00 lb BMI (Body Mass Index) 35.0 kg/m2 Body Temperature 98.1 F BP Systolic 137 mmHg BP Diastolic 81 mmHg Heart Rate 95 /min O2 % BldC Oximetry 98 % 04/05/2021 3:39pm Height 71 inches 5'11" Weight 255.00 lb BMI (Body Mass Index) 35.6 kg/m2 Body Temperature 99.0 F BP Systolic 146 mmHg BP Diastolic 92 mmHg Heart Rate 96 /min O2 % BldC Oximetry 97 % Procedures Date Code Description Status 05/07/2021 56852 Office/Outpatient Established Lo w MDM 20-29 Min Completed 04/05/2021 72124 Office/Outpatient Established Lo w MDM 20-29 Min Completed 02/19/2021 72120 Office/Outpatient Established Lo w MDM 20-29 Min Completed 01/18/2021 79973 Office/Outpatient Established Lo w MDM 20-29 Min Completed 01/10/2021 95013 Multistage Exercise Stress Test Completed 01/10/2021 82424 Myocardial Perfusion,WM & Ef Com pleted 01/09/2021 40522 Office/Outpatient Established Mo d MDM 30-39 Min Completed 01/09/2021 97108 Echocardiogram, Complete Complet ed 01/09/2021 83826 Multistage Exercise Stress Test Completed Encounters Type Date Location Provider Dx Diagnosis Office Visit 05/07/2021 3:00p [facility] I11.9 Hypertensive heart disease without heart failure M94.0 Chondrocostal junction syndr ome [Tietze] Office Visit 04/05/2021 3:30p [facility] M94.0 Chondrocostal junction syndrome [Tietze] Office Visit 02/19/2021 2:15p [facility] R07.9 Chest pain, unspecified Office Visit 01/18/2021 1:30p [facility] I10 Essential (primary) hypertension R07.9 Chest pain, unspecified Office Visit 01/09/2021 3:15p [facility] R07.9 Chest pain, unspecified I25.9 Chronic ischemic heart disea se, unspecified I34.0 Nonrheumatic mitral (valve) insufficiency Assessments Date Code Description Provider 05/07/2021 I11.9 Hypertensive heart disease witho ut heart failure [facility] 05/07/2021 M94.0 Chondrocostal junction syndrome [Tietze] [facility] 04/05/2021 M94.0 Chondrocostal junction syndrome [Tietze] [facility] 02/19/2021 R07.9 Chest pain, unspecified [facility] Allison [facility]ris[facility] 01/18/2021 I10 Essential (primary) hypertension [facility] 01/18/2021 R07.9 Chest pain, unspecified Chau As hrafAllison[facility] 01/10/2021 R07.9 Chest pain, unspecified Chau As hrAllison galarza[facility] 01/09/2021 R07.9 Chest pain, unspecified Chau As Allison norris[facility] 01/09/2021 I25.9 Chronic ischemic heart disease, unspecified [facility] 01/09/2021 I34.0 Nonrheumatic mitral (valve) insu fficiency [facility] Referrals Refer to Reason for Referral Status Appt Date Chau Mendes M.D. Created [address] [place] [address] [phone]
--- OUTSIDE RECORDS SUMMARY | 2021-07-27 09:33 | CCD | Continuity of Care Document ---
Author Author [facility] Organization Unknown Address [address] [place] [address] Phone [phone] Care Team Providers Care Watch Assembler Name Role Phone Bo Patel [facility] AUTM [phone] Bo Trogretel [facility] AUT Social History Type Date Description Comments [...] 97 % Procedures Date Code Description Status 04/05/2021 59107 Office/Outpatient Established Lo w MDM 20-29 Min Completed 02/19/2021 44485 Office/Outpatient Established Lo w MDM 20-29 Min Completed 01/18/2021 62292 Office/Outpatient Established Lo w MDM 20-29 Min Completed 01/10/2021 23984 Multistage Exercise Stress Test Completed 01/10/2021 63389 Myocardial Perfusion,WM & Ef Com pleted 01/09/2021 82839 Office/Outpatient Established Mo d MDM 30-39 Min Completed 01/09/2021 55677 Echocardiogram, Complete Complet ed 01/09/2021 88590 Multistage Exercise Stress Test Completed Encounters Type Date Location Provider Dx Diagnosis Office Visit 04/05/2021 3:30p [facility] M94.0 Chondrocostal junction syndrome [Tietze] Office Visit 02/19/2021 2:15p [facility] R07.9 Chest pain, unspecified Office Visit 01/18/2021 1:30p [facility] I10 Essential (primary) hypertension R07.9 Chest pain, unspecified Office Visit 01/09/2021 3:15p [facility] R07.9 Chest pain, unspecified I25.9 Chronic ischemic heart disea se, unspecified I34.0 Nonrheumatic mitral (valve) insufficiency Assessments Date Code Description Provider 04/05/2021 M94.0 Chondrocostal junction syndrome [Tietze] [facility] 02/19/2021 R07.9 Chest pain, unspecified Chau As hrafAllison[facility] 01/18/2021 I10 Essential (primary) hypertension [facility] 01/18/2021 R07.9 Chest pain, unspecified Chau As hrafAllison[facility] 01/10/2021 R07.9 Chest pain, unspecified Chau As hrAllison galarza[facility] 01/09/2021 R07.9 Chest pain, unspecified Chau As hrafAllison[facility] 01/09/2021 I25.9 Chronic ischemic heart disease, unspecified [facility] 01/09/2021 I34.0 Nonrheumatic mitral (valve) insu fficiency [facility] Referrals Refer to Reason for Referral Status Appt Date Chau Mendes M.D. Created [address] [place] [address] [phone]
--- OUTSIDE RECORDS SUMMARY | 2021-07-27 09:34 | CCD ---
Author Author [facility] Organization [facility] Address Unknown Phone Unavailable Care Team Providers Care Control System Manager Name Role Phone Noni, Eladia Mead MD Unavailable Unavailable Noni, Eladia Mead MD Unavailable Unavailable Noni, Eladia Mead MD Unavailable Unavailable Noni, Eladia Mead MD Unavailable Unavailable Noni, Eladia Mead MD Unavailable Unavailable Noni, Eladia Mead MD Unavailable Unavailable Noni, Eladia Mead MD Unavailable Unavailable Noni, Eladia Mead MD Unavailable Unavailable Noni, Eladia Meda MD Unavailable Unavailable Noni, Eladia Mead MD Unavailable Unavailable Noni, Eladia Mead MD Unavailable Unavailable Noni, Eladia Mead MD Unavailable Unavailable Noni, Eladia Mead MD Unavailable Unavailable Noni, Eladia Mead MD Unavailable Unavailable Noni, Eladia Mead MD Unavailable Unavailable Eladia RAMEY MD Unavailable Unavailable Eladia RAMEY MD Unavailable Unavailable Eladia RAMEY MD Unavailable Unavailable Eladia RAMEY MD Unavailable Unavailable Eladia RAMEY MD Unavailable Unavailable Eladia RAMEY MD Unavailable Unavailable Eladia RAMEY MD Unavailable Unavailable Eladia RAMEY MD Unavailable Unavailable Eladia RAMEY MD Unavailable Unavailable Eladia RAMEY MD Unavailable Unavailable Eladia RAMEY MD Unavailable Unavailable Eladia RAMEY MD Unavailable Unavailable Eladia RAMEY MD Unavailable Unavailable Eladia RAMEY MD Unavailable Unavailable Eladia RAMEY MD Unavailable Unavailable Eladia RAMEY MD Unavailable Unavailable Jesús Pandey RPA-C Unavailable Unavailable Kenniff, P Vega RPA-C Unavailable Unavailable Kenniff, P Vega RPA-C Unavailable Unavailable Kenniff, P Vega RPA-C Unavailable Unavailable Kenniff, P Vega RPA-C Unavailable Unavailable Kenniff, P Vega RPA-C Unavailable Unavailable Kenniff, P Vega RPA-C Unavailable Unavailable Kenniff, P Vega RPA-C Unavailable Unavailable Kenniff, P Vega RPA-C Unavailable Unavailable Kenniff, P Vega RPA-C Unavailable Unavailable Kenniff, P Veag RPA-C Unavailable Unavailable Kenniff, P Vega RPA-C Unavailable Unavailable Kenniff, P Vega RPA-C Unavailable Unavailable Kenniff, P Vega RPA-C Unavailable Unavailable Kenniff, P Vega RPA-C Unavailable Unavailable Kenniff, P Vega RPA-C Unavailable Unavailable Kenniff, P Vega RPA-C Unavailable Unavailable Kenniff, P Vega RPA-C Unavailable Unavailable Kenniff, P Vega RPA-C Unavailable Unavailable Kenniff, P Vega RPA-C Unavailable Unavailable Kenniff, P Vega RPA-C Unavailable Unavailable Kenniff, P Vega RPA-C Unavailable Unavailable Kenniff, P Vega RPA-C Unavailable Unavailable Kenniff, P Vega RPA-C Unavailable Unavailable TURRIN, CESARIO Unavailable Unavailable TURRIN, CESARIO Unavailable Unavailable TURRIN, CESARIO Unavailable Unavailable TURRIN, CESARIO Unavailable Unavailable RACHEL, MAQBOOL PIPER MD Unavailable Unavailable RACHEL, MAQBOOL PIPER MD Unavailable Unavailable RACHEL, MAQBOOL PIPER MD Unavailable Unavailable RACHEL, MAQBOOL PIPER MD Unavailable Unavailable RACHEL, MAQBOOL PIPER MD Unavailable Unavailable RACHEL, MAQBOOL PIPER MD Unavailable Unavailable RACHEL, MAQBOOL PIPER MD Unavailable Unavailable RACHEL, MAQBOOL PIPER MD Unavailable Unavailable RACHEL, MAQBOOL PIPER MD Unavailable Unavailable RACHEL, MAQBOOL PIPER MD Unavailable Unavailable RACHEL, MAQBOOL PIPER MD Unavailable Unavailable RACHEL, MAQBOOL PIPER MD Unavailable Unavailable RACHEL, MAQBOOL PIPER MD Unavailable Unavailable RACHEL, MAQBOOL PIPER MD Unavailable Unavailable RACHEL, MAQBOOL PIPER MD Unavailable Unavailable RACHEL, MAQBOOL PIPER MD Unavailable Unavailable RACHEL, MAQBOOL PIPER MD Unavailable Unavailable RACHEL, MAQBOOL PIPER MD Unavailable Unavailable RACHEL, MAQBOOL PIPER MD Unavailable Unavailable RACHEL, MAQBOOL PIPER MD Unavailable Unavailable RACHEL, MAQBOOL PIPER MD Unavailable Unavailable RACHEL, MAQBOOL PIPER MD Unavailable Unavailable RACHEL, MAQBOOL PIPER MD Unavailable Unavailable RACHEL, MAQBOOL PIPER MD Unavailable Unavailable RACHEL, MAQBOOL PIPER MD Unavailable Unavailable RACHEL, MAQBOOL PIPER MD Unavailable Unavailable RACHEL, MAQBOOL PIPER MD Unavailable Unavailable RACHEL, MAQBOOL PIPER MD Unavailable Unavailable RACHEL, MAQBOOL PIPER MD Unavailable Unavailable RACHEL, MAQBOOL PIPER MD Unavailable Unavailable RACHEL, MAQBOOL PIPER MD Unavailable Unavailable RACHEL, MAQBOOL PIPER MD Unavailable Unavailable RACHEL, MAQBOOL PIPER MD Unavailable Unavailable RACHEL, MAQBOOL PIPER MD Unavailable Unavailable RACHEL, MAQBOOL PIPER MD Unavailable Unavailable RACHEL, MAQBOOL PIPER MD Unavailable Unavailable RACHEL, MAQBOOL PIPER MD Unavailable Unavailable RACHEL, MAQBOOL PIPER MD Unavailable Unavailable RACHEL, MAQBOOL PIPER MD Unavailable Unavailable RACHEL, MAQBOOL PIPER MD Unavailable Unavailable RACHEL, MAQBOOL PIPER MD Unavailable Unavailable RACHEL, MAQBOOL PIPER MD Unavailable Unavailable RACHEL, MAQBOOL PIPER MD Unavailable Unavailable RACHEL, MAQBOOL PIPER MD Unavailable Unavailable RACHEL, MAQBOOL PIPER MD Unavailable Unavailable RACHEL, MAQBOOL PIPER MD Unavailable Unavailable RACHEL, MAQBOOL PIPER MD Unavailable Unavailable RACHEL, MAQBOOL PIPER MD Unavailable Unavailable RACHEL, MAQBOOL PIPER MD Unavailable Unavailable RACHEL, MAQBOOL PIPER MD Unavailable Unavailable RACHEL, MAQBOOL PIPER MD Unavailable Unavailable RACHEL, MAQBOOL PIPER MD Unavailable Unavailable RACHEL, MAQBOOL PIPER MD Unavailable Unavailable RACHEL, MAQBOOL PIPER MD Unavailable Unavailable RACHEL, MAQBOOL PIPER MD Unavailable Unavailable RACHEL, MAQBOOL PIPER MD Unavailable Unavailable RACHEL, MAQBOOL PIPER MD Unavailable Unavailable RACHEL, MAQBOOL PIPER MD Unavailable Unavailable RACHEL, MAQBOOL PIPER MD Unavailable Unavailable RACHEL, MAQBOOL PIPER MD Unavailable Unavailable RACHEL, MAQBOOL PIPER MD Unavailable Unavailable RACHEL, MAQBOOL PIPER MD Unavailable Unavailable RACHEL, MAQBOOL PIPER MD Unavailable Unavailable RACHEL, MAQBOOL PIPER MD Unavailable Unavailable RACHEL, MAQBOOL PIPER MD Unavailable Unavailable RACHEL, MAQBOOL PIPER MD Unavailable Unavailable RACHEL, MAQBOOL PIPER MD Unavailable Unavailable RACHLE, MAQBOOL PIPER MD Unavailable Unavailable RACHEL, MAQBOOL PIPER MD Unavailable Unavailable RACHEL, MAQBOOL PIPER MD Unavailable Unavailable RACHEL, MAQBOOL PIPER MD Unavailable Unavailable RACHEL, MAQBOOL PIPER MD Unavailable Unavailable RACHEL, MAQBOOL PIPER MD Unavailable Unavailable RACHEL, MAQBOOL PIPER MD Unavailable Unavailable RACHEL, MAQBOOL PIPER MD Unavailable Unavailable RACHEL, MAQBOOL PIPER MD Unavailable Unavailable RACHEL, MAQBOOL PIPER MD Unavailable Unavailable RACHEL, MAQBOOL PIPER MD Unavailable Unavailable Halle Reilly MD Unavailable Unavailable Halle Reilly MD Unavailable Unavailable Halle Reilly MD Unavailable Unavailable Tommie O Alana ALMEIDA Unavailable Unavailable Halle Reilly MD Unavailable Unavailable Tommie O Alana ALMEIDA Unavailable Unavailable Tommie O Alana ALMEIDA Unavailable Unavailable Tommie O Samah Unavailable Unavailable Tommie O Samah Unavailable Unavailable Tommie O Samah Unavailable Unavailable Tommie O Samah Unavailable Unavailable Tommie O Sandorah Unavailable Unavailable Tommie O Alana ALMEIDA Unavailable Unavailable Tommie O Sandorah Unavailable Unavailable Tommie O Sandorah Unavailable Unavailable Tommie O Sandorah Unavailable Unavailable Tommie O Sandorah Unavailable Unavailable Tommie O Sandorah Unavailable Unavailable Tommie Halle Warner MD Unavailable Unavailable Halle Reilly MD Unavailable Unavailable Halle Reilly MD Unavailable Unavailable Halle Reilly MD Unavailable Unavailable Halle Reilly MD Unavailable Unavailable Halle Reilly MD Unavailable Unavailable Halle Reilly MD Unavailable Unavailable Halle Reilyl MD Unavailable Unavailable Halle Reilly MD Unavailable Unavailable Halle Reilly MD Unavailable Unavailable Halle Reilly MD Unavailable Unavailable Halle Reilly MD Unavailable Unavailable Halle Reilly MD Unavailable Unavailable Halle Reilly MD Unavailable Unavailable Halle Reilly MD Unavailable Unavailable Halle Reilly MD Unavailable Unavailable Halle Reilly MD Unavailable Unavailable Halle Reilly MD Unavailable Unavailable Halle Reilly MD Unavailable Unavailable Halle Reilly MD Unavailable Unavailable Halle Reilly MD Unavailable Unavailable Halle Reilly MD Unavailable Unavailable Halle Reilly MD Unavailable Unavailable Halle Reilly MD Unavailable Unavailable Halle Reilly MD Unavailable Unavailable Halle Reilly MD Unavailable Unavailable Halle Reilly MD Unavailable Unavailable Halle Reilly MD Unavailable Unavailable Halle Reilly MD Unavailable Unavailable Halle Reilly MD Unavailable Unavailable Halle Reilly MD Unavailable Unavailable Halle Reilly MD Unavailable Unavailable Halle Reilly MD Unavailable Unavailable Halle Reilly MD Unavailable Unavailable Halle Reilly MD Unavailable Unavailable Halle Reilly MD Unavailable Unavailable Hlale Reilly MD Unavailable Unavailable Halle Reilly MD Unavailable Unavailable Halle Reilly MD Unavailable Unavailable Halle Reilly MD Unavailable Unavailable Halle Reilly MD Unavailable Unavailable Halle Reilly MD Unavailable Unavailable Halle Reilly MD Unavailable Unavailable Halle Reilly MD Unavailable Unavailable Halle Reilly MD Unavailable Unavailable Halle Reilly MD Unavailable Unavailable Tommie, O Samah MD Unavailable Unavailable Tommie, O Samah MD Unavailable Unavailable Tommie, O Samah MD Unavailable Unavailable Tommie, O Samah MD Unavailable Unavailable Tommie, O Samah MD Unavailable Unavailable Tommie, O Samah MD Unavailable Unavailable Tommie, O Samah MD Unavailable Unavailable Tommie, O Samah MD Unavailable Unavailable Tommie, O Samah MD Unavailable Unavailable Tommie, O Samah MD Unavailable Unavailable Tommie, O Samah MD Unavailable Unavailable Tommie, O Samah MD Unavailable Unavailable Tommie, O Samah MD Unavailable Unavailable Tommie, O Samah MD Unavailable Unavailable Tommie, O Samah MD Unavailable Unavailable ZULICK, C KWAME MD Unavailable Unavailable ZULICK, C KWAME MD Unavailable Unavailable ZULICK, C KWAME MD Unavailable Unavailable ZULICK, C KWAME MD Unavailable Unavailable ZULICK, C KWAME MD Unavailable Unavailable ZULICK, C KWAME MD Unavailable Unavailable ZULICK, C KWAME MD Unavailable Unavailable ZULICK, C KWAME MD Unavailable Unavailable ZULICK, C KWAME MD Unavailable Unavailable ZULICK, C KWAME MD Unavailable Unavailable ZULICK, C KWAME MD Unavailable Unavailable ZULICK, C KWAME MD Unavailable Unavailable ZULICK, C KWAME MD Unavailable Unavailable ZULICK, C KWAME MD Unavailable Unavailable ZULICK, C KWAME MD Unavailable Unavailable ZULICK, C KWAME MD Unavailable Unavailable [facility] Unavailable Unavailable Re-disclosure Warning The records that you are about to access may contain information from federally-assisted alcohol or drug abuse programs. If such information is present, then the following federally mandated warning applies: This information has been disclosed to you from records protected by federal confidentiality rules (42 CFR part 2). The federal rules prohibit you from making any further disclosure of this information unless further disclosure is expressly permitted by the written consent of the person to whom it pertains or as otherwise permitted by 42 CFR part 2. A general authorization for the release of medical or other information is NOT sufficient for this purpose. The Federal rules restrict any use of the information to criminally investigate or prosecute any alcohol or drug abuse patient.The records that you are about to access may contain highly sensitive health information, the redisclosure of which is protected by Article 27-F of the [facility] Public Health law. If you continue you may have access to information: Regarding HIV / AIDS; Provided by facilities licensed or operated by the [facility] Office of Mental Health; or Provided by the [facility] Office for People With Developmental Disabilities. If such information is present, then the following [facility] mandated warning applies: This information has been disclosed to you from confidential records which are protected by state law. State law prohibits you from making any further disclosure of this information without the specific written consent of the person to whom it pertains, or as otherwise permitted by law. Any unauthorized further disclosure in violation of state law may result in a fine or senior living sentence or both. A general authorization for the release of medical or other information is NOT sufficient authorization for further disc losure. Allergies and Adverse Reactions Type Description Substance Reaction Status Data Source(s ) No Known Drug Allergies No Known Drug Allergies [facility] No Known Environmental Allergies No Known Environmental Al lergies [facility] No Known Food Allergies No Known Food Allergies [facility] Encounters Encounter Providers Location Date Indications Data Source(s ) Outpatient Attender: Vega ALCConsultant: Vega DIRO 06/28/2021 07:39:00 AM EDT - 06/28/2021 08:39:00 AM EDT [facility] Outpatient Attender: Vega BERMUDEZonsultant: Vega DIOR 06/27/2021 10:47:05 AM EDT - 06/27/2021 08:38:00 AM EDT [facility] Patient discharged. Outpatient Attender: Vega BERMUDEZonsultant: Vega DIOR 06/27/2021 08:00:00 AM EDT - 06/27/2021 09:00:00 AM EDT [facility] Outpatient Referrer: Boston Cheney MD [email or web address] 2020 08:31:44 AM EDT - 05/16/2021 11:59:00 PM EDT [facility] Patient discharged. Emergency Attender: CESARIO Ibanezsultant: GARETH SMITH 05/07/2021 03:52:00 PM EDT - 05/07/2021 06:39:00 PM EDT [facility] Patient discharged. Outpatient Attender: PIPER MENDES MD Medical [facility] 05/07 03:00:00 PM EDT [facility] ([facility]) Outpatient Attender: Alana Reilly MD [facility] 04/25/2021 02:15:00 PM EDT [facility] ([facility]RA [facility]) Outpatient Attender: PIPER MENDES MD [facility] 04/05 03:30:00 PM EDT [facility] ([facility]) Outpatient Attender: PIPER MENDES MD [facility] 02/19 02:15:00 PM EDT [facility] ([facility]) Outpatient Attender: KWAME RAMEY MD 2020 09:39:00 AM EDT - 01/31/2021 10:39:00 AM EDT [facility] Patient discharged. Office Visit Attender: KWAME RAMEY MD Family Practice 2020 08:30:00 AM EDT [facility] Outpatient Attender: KWAME RAMEY MD 2020 08:18:00 AM EDT [facility] PIPER MENDES MD [facility] 01/18 01:30:00 PM EDT [facility] ([facility]) Outpatient Attender: PIPER MENDES MD [facility] 01/09 03:15:00 PM EDT [facility] ([facility]) Outpatient Attender: Alana Reilly MD [facility] 01/09/2021 12:00:00 PM EDT [facility] ([facility] qiu, DEIDRA) Outpatient Attender: KWAME RAMEY MD 2020 09:20:00 AM EST - 10/18/2020 09:20:00 AM [facility] Emergency Attender: CESARIO VERONICA 2019 06:17:00 PM EST - 09/20/2020 08:26:00 PM [facility] Patient discharged. Outpatient Attender: KWAME RAMEY MD 2019 09:52:00 AM EST - 09/06/2020 09:52:00 AM [facility] Outpatient Attender: Alana Reilly MD Main office - [facility] 06/05/2020 12:30:00 PM EDT [facility] ([facility]) Outpatient Attender: KWAME RAMEY MD 2019 10:33:00 AM EDT - 05/31/2020 10:33:00 AM EDT [facility] Emergency Attender: CESARIO VERONICA 2019 08:42:00 PM EDT - 05/17/2020 10:53:00 PM EDT [facility] Patient discharged. Outpatient Attender: KWAME RAMEY MD 2019 10:33:00 AM EDT - 05/03/2020 10:33:00 AM EDT [facility] Outpatient Attender: KWAME RAMEY MD 2019 07:04:28 AM EDT - 04/18/2020 09:30:00 AM EDT [facility] Patient discharged. Immunizations Vaccine Date Status Description Data Source(s) COVID-19 VACCINE Pfizer 01/12/2021 12:00:00 AM EDT completed [facility] Vaccine Series Complete: NOThis Data was Submitted to [facility] Via [employer]. Medications Medication Brand Name Start Date Product Form Dose Route Admi nistrative Instructions Pharmacy Instructions Status Indications Reaction Description Data Source(s) meloxicam 7.5 MG Oral Tablet [Mobic] Mobic 05/07/2021 12:00:00 AM EDT ORAL active [facility] ([facility]) Amitriptyline Hydrochloride 25 MG Oral Tablet Amitriptyline HCL 04/25/2021 12:00:00 AM EDT active M [facility] ([facility]) Aimovig Aimovig 04/25/2021 12:00:00 AM EDT SUBCUTANEOUS active [facility] ([facility]) Medrol Medrol 02/19/2021 12:00:00 AM EDT active [facility] ([facility]) meloxicam 7.5 MG Oral Tablet [Mobic] Mobic 01/18/2021 12:00:00 AM EDT ORAL active [facility] ([facility]) Technetium TC 99M Sestamibi 01/10/2021 12:00:00 AM EDT completed [facility] ([facility]) Medication administered onsite Hydrochlorothiazide 12.5 MG / Losartan Potassium 50 MG Oral Tablet Losartan Potassium/Hydrochlorothiazide 01/10/2021 12:00:00 AM EDT ORAL active [facility] ([facility]) 24 HR metoprolol succinate 50 MG Extended Release Oral Tablet Metoprolol Succinate ER 01/10/2021 12:00:00 AM EDT ORAL active [facility] ([facility]) Aspirin 81 MG Delayed Release Oral Tablet [Ecotrin] Ecotrin Low Strength 01/10/2021 12:00:00 AM EDT active [facility] ([facility]) Aimovig Aimovig 01/09/2021 12:00:00 AM EDT SUBCUTANEOUS completed [facility] ([facility]) Amitriptyline Hydrochloride 75 MG Oral Tablet Amitriptyline HCL 01/09/2021 12:00:00 AM EDT ORAL completed [facility] ([facility]) Abdominal Binder/Elastic/2X-Large 10/18/2020 12:00:00 AM EST active [facility] ([facility]) Amitriptyline Hydrochloride 25 MG Oral Tablet Amitriptyline HCL 09/06/2020 12:00:00 AM EST ORAL active M [facility] ([facility]) Amitriptyline Hydrochloride 25 MG Oral Tablet Amitriptyline HCL 06/05/2020 12:00:00 AM EDT active M [facility] ([facility]) POLYETHYLENE GLYCOL 3350 142 MG/ML Oral Solution [Miralax] M iralax 04/18/2020 12:00:00 AM EDT completed [facility] ([facility]) Docusate Sodium 100 MG Oral Capsule [Colace] Colace 12:00:00 AM EDT ORAL completed [facility] ([facility]) Insurance Providers Payer name Policy type / Coverage type Policy ID Covered republican ID Covered republican's relationship to prado Policy Prado Plan Information [facility] ACTIVE DUTY [id number] SP [id number] [facility] [place] [id number] [employer]IC [id number] [facility] [id number] [employer]ER[employer]IC [id number] [facility] [place] [id number] 18 [id number] [facility] [place] [id number] 18 [id number] [employer] [id number] 18 [id number] [employer] [id number] 18 [id number] [facility] [place] [id number] 18 [id number] Problems, Conditions, and Diagnoses Code Display Name Description Problem Type Effective Dates Data Source(s) [id number] Spinal stenosis, lumbar region without n eurogenic claudication Spinal stenosis, lumbar region without neurogenic claudication Diagnosis 06/28/2021 07:39:00 AM EDT [facility] R229 Localized swelling, mass and lump, unspe cified Localized swelling, mass and lump, unspecified Diagnosis 06/28/2021 07:39:00 AM EDT [facility] R42 Dizziness and giddiness Dizziness and giddiness Diagno sis 06/28/2021 07:39:00 AM EDT [facility] J349 Unspecified disorder of nose and nasal s inuses Unspecified disorder of nose and nasal sinuses Diagnosis 06/27/2021 08:00:00 AM EDT [facility] Z5321 Procedure and treatment not carried out due to patient leaving prior to being seen by health care provider Procedure and treatment not carried out due to patient leaving prior to being seen by health care provider Diagnosis 06/27/2021 07:38:00 AM EDT [facility] R07.9 Chest pain, unspecified Chest pain, unspecified Diagno sis 05/16/2021 08:31:44 AM EDT [facility] Z42243 Pain in left knee Pain in left knee Diagnosis 05/07/2021 03:52:00 PM EDT [facility] K432 Incisional hernia without obstruction or gangrene Incisional hernia without obstruction or gangrene Diagnosis 01/31/2021 09:39:00 AM EDT [facility] R109 Unspecified abdominal pain Unspecified abdominal pain Diagnosis 10/18/2020 09:20:00 AM [facility] I10 Essential (primary) hypertension Essential (primary) h ypertension Diagnosis 09/20/2020 06:17:00 PM [facility] [id number] Migraine with aura, not intractable, wit hout status migrainosus Migraine with aura, not intractable, without status migrainosus Diagnosis 09/20/2020 06:17:00 PM [facility] R519 Headache, unspecified Headache, unspecified Diagnosis 09/20/2020 06:17:00 PM [facility] Z4889 Encounter for other specified surgical a ftercare Encounter for other specified surgical aftercare Diagnosis 09/06/2020 09:52:00 AM [facility] Surgeries/Procedures Procedure Description Date Indications Data Source(s) ECHO TTHRC R-T 2D W/WOM-MODE COMPL SPEC&COLR DOP <td>E CHOCARDIOGRAM TRANSTHORACIC</td><td>Routine</td><td>05/16/2021 9:27 AM EDT</td><td> Chest pain, unspecified</td><td> </td> 05/16/2021 09:27:14 AM EDT Chest pain, unspecified [facility] Chest pain, unspecified OFFICE OUTPATIENT VISIT 15 MINUTES 05/07/2021 12:00:00 AM EDT [facility] ([facility]) OFFICE OUTPATIENT VISIT 25 MINUTES 04/25/2021 12:00:00 AM EDT [facility] ([facility]) OFFICE OUTPATIENT VISIT 15 MINUTES 04/05/2021 12:00:00 AM EDT [facility] ([facility]) OFFICE OUTPATIENT VISIT 15 MINUTES 02/19/2021 12:00:00 AM EDT [facility] ([facility]) OFFICE OUTPATIENT VISIT 15 MINUTES 01/18/2021 12:00:00 AM EDT [facility] ([facility]) MYOCARDIAL SPECT MULTIPLE STUDIES 01/10/2021 12:00:00 AM EDT [facility] ([facility]) CV STRS TST XERS&/OR RX CONT ECG PHYS SI&R 01/10/2021 12:00:00 AM EDT [facility] ([facility]) CV STRS TST XERS&/OR RX CONT ECG PHYS SI&R 01/09/2021 12:00:00 AM EDT [facility] ([facility]) ECHO TTHRC R-T 2D W/WOM-MODE COMPL SPEC&COLR DOP 01/09 12:00:00 AM EDT [facility] ([facility]) OFFICE OUTPATIENT VISIT 25 MINUTES 01/09/2021 12:00:00 AM EDT [facility] ([facility]) OFFICE OUTPATIENT VISIT 25 MINUTES 01/09/2021 12:00:00 AM EDT [facility] ([facility] ) Results ID Date Data Source [id number] 06/28/2021 01:01:00 PM EDT [facility] [address] [place] [address] PHONE: [phone] FAX: [phone] Name .................. : ETTUH RIYABRANDON Kam Acct Number.................. : [id number] ROOM. ................. : Number ................... : [id number] Stay type ............. : O/P Discharge Date......... ... : 06/28/21 Admit Date ......... : 06/28/21 Admit Phys .................... : PENELOPE TAYLOR Date of ....... : 1980 Family Phys ................... : PENELOPE TAYLOR Phone .................. : [phone] Age ................................ : 41 Film# .................. .:[id number] Sex ................................. : M Unsigned transcriptions are preliminary reports and do not represent a medical or legal document MRI LUMBAR SPINE W/O CONTRAST [id number] COMPLETE:06/28/21 10:31 ANNALEE [id number] Reason for Exam: VERTIGO, SPINAL CORD MASS MRI LUMBAR SPINE WITHOUT IV CONTRAST INDICATION: Elevated CK. Dizziness and vertigo. Rule out brain or spinal cord mass. COMPARISON: None CONTRAST: None TECHNIQUE: Multiple MRI sequences of the lumbar spine were obtained in the sagittal and axial planes. FINDINGS: The lumbar vertebral bodies are normal height. No fracture or destructive bone lesion. No lesion seen in the conus. L 1-2, L2-3, L3-4 unremarkable. L4-5: Mild disc bulge. Mild facet arthropathy. Very mild thecal sac compression. Mild bilateral foraminal stenosis. L5-S1: Mild facet arthropathy. No canal stenosis. Mild bilateral foraminal stenosis. IMPRESSION: 1. No tumor identified. 2. Mild bilateral foraminal stenosis at L4-5 and L5-S1. Electronically Reviewed and Signed By Edwar Hunter MD , 06/28/21 13:01, JWS Page 1 of 2 [place] [address] PHONE: [phone] FAX: [phone] Name .................. : ETTUH KODJO B Acct Number.................. : [id number] ROOM. ................. : Number ................... : [id number] Stay type ............. : O/P Discharge Date......... ... : 06/28/21 Admit Date ......... : 06/28/21 Admit Phys .................... : PENELOPE TAYLOR Date of ....... : 1980 Family Phys ................... : PENELOPE TAYLOR Phone .................. : [phone] Age ................................ : 41 Film# .................. .:[id number] Sex ................................. : M Unsigned transcriptions are preliminary reports and do not represent a medical or legal document MRI LUMBAR SPINE W/O CONTRAST [id number] COMPLETE:06/28/21 10:31 ANNALEE [id number] Reason for Exam: VERTIGO, SPINAL CORD MASS Transcribe Initials: KJ, Transcribe Date: 06/28/21 12:26, Dictation Date: Copy for: [address] [place] [address] REC Page 2 of 2 Name Value Range Interpretation Code Description Data Jana rce(s)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 The patient has not had redness. No swelling, bladder dysfunction, bowel dysfunction, sensory loss or motor loss. 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 He states he had an exacerbation of left knee pain starting on . No associated injury. Pain is worse with wt bearing. No associated numbness or tingling. He is on a profile at work for numerous musculoskeletal issues. He has been avoiding ibuprofen because he heard bad things about associated with COVID. he called his PCP but can't get in until 05/14/21.). Patient denies an injury. Similar symptoms previously. Patient has had similar symptoms many times. Recent medical care: Not recently seen/assessed.REVIEW OF SYSTEMSNo chills, fatigue, fever, double vision or ear pain. No nasal congestion, runny nose, sore throat, chestpain or cough. No difficulty breathing, abdominal pain, diarrhea, nausea or vomiting. No urinaryproblems, skin rash, headache, numbness or weakness. The patient has had back pain (chronic,unchanged from baseline).SOCIAL HISTORYNever smoker. No alcohol use or drug use.ADDITIONAL NOTESThe nursing notes have been reviewed with agreement regarding the chief complaint, HPI, ROS, PMH andpatient medications and allergies.PHYSICAL EXAMVital Signs: 05/07/2021 18:13 BP: 145/87. MAP: 106. HR: 78. RR: 18. O2 saturation: 99%. Temp: 98.0 F.05/07/2021 17:20 BP: 152/99. MAP: 116. HR: 81. RR: 18. O2 saturation: 99%. Temp: 98 F. Pain level now:03/15. Have been reviewed and appear to be correct. Hypertensive. Heart rate normal. Respiratoryrate normal. Temperature normal. Oxygen saturation normal.Appearance: Alert. Oriented X3. No acute distress. 2 Clinical Report - Physicians/Mid Levels [facility] Emergency Department [address] [place] [address] Phone #: ext- [phone] 05/07/2021 15:40 [id number] Sex: M : 1980 Age: 41y Eyes: Eyes normal inspection. Neck: Normal inspection. CVS: Normal heart rate and rhythm. Heart sounds normal. Respiratory: No respiratory distress. Breath sounds normal. Back: Normal inspection. Skin: Skin intact. Skin warm and dry. Normal skin color. Extremities: Left knee: mild tenderness located in the suprapatellar area and lateral joint line. Neurovascular intact distally. No erythema, swelling or laceration. No limitation in ROM. Lower extremities exhibit normal ROM. No lower extremity edema. Extremities otherwise negative. Gait: Normal gait. Neuro: Oriented X 3. No motor deficit. No sensory deficit.PROGRESS AND PROCEDURESCourse of Care: 18:06 05/07/21. Barbi haskins Scott - 05/07/2021 6:04:20 PMRADIOGRAPHS OF THE left knee 4 VIEWS COMPARISON: [None.] FINDINGS: [No acute fracture or dislocation. No focal bone lesion.] [Visible joint spaces are well preserved. No marginal osteophytes or e rosions. No significant soft tissue abnormality.] IMPRESSION: [Negative study.] WET READ Findings reviewed with the pt. Advise NSAIDs, activity as tolerated and follow up with PCP for further/continued evaluation. Some improvement in symptoms with motrin. Disposition: Discharged home. Discharge decision based on the following: patient's condition is stable; patient is ambulatory; patient's pain is controlled; patient's exam is stable; no abnormal test results; stable condition on repeat evaluation; social support is adequate; transportation is available; follow-up is available; clinical impression is consistent with outpatient treatment.CLINICAL IMPRESSION Left knee pain. 3 Clinical Report - Physicians/Mid Levels [facility] Emergency Department [address] [place] [address] Phone #: ext [phone] 05/07/2021 15:40 Patient: JONI BUNDY [facility]#: [id number] Sex: M : 1980 Age: 41yINSTRUCTIONS (Activity as tolerated. Your x-ray was interpreted as negative. You can take the prescribed mobic to see if this helps your pain. Follow up with your regular provider is important for further evaluation and management of your symptoms. Return to the ER for worsening or concerning symptoms). Warnings: Further evaluation is necessary (Given the fact your symptoms are chronic and not improving, you should follow up with your regular provider for further evaluation.). It is very important to follow up with a healthcare provider. GENERAL WARNINGS: Return or contact your physician immediately if your condition worsens or changes unexpectedly, if not improving as expected, or if other problems arise. Specifically return if problem worsens or fails to resolve. Your Current Medications: Your current home medications have been reviewed. CONTINUE TAKING THE FOLLOWING MEDICATIONS: Amitriptyline HCl Oral : Tablet 25 mg, daily, prn. Prescription Medications: Mobic 15 mg tablet Take 1 tablet once a day -- Dispense 15 tablet. Refills: 0. Substitution permitted. Pharmacy - [facility] [id number] ; [place] [address]. Phone: . Understanding of the discharge instructions verbalized by patient. Follow-up with: [facility], , , [id number] [place] [address], , [place], [address] Follow up in about five days. Call for an appointment. Reason for referral: evaluation and treatment. Summary of care provided to patient via paper.(Electronically signed by JEFFY Watkins 05/07/2021 18:30) Name Value Range Interpretation Code Description Data Jana rce(s) Supporting Document(s) ID Date Data Source [id number] 03/11/2021 11:39:00 PM EDT [facility] Name Value Range Interpretation Code Description Data Jana rce(s) Supporting Document(s) SARS coronavirus 2 RNA [Presence] in Res piratory specimen by KELLI with probe detection NEGATIVE [place] This lab was ordered by [facility] a nd reported by [facility]. ID Date Data Source [id number] 02/01/2021 11:36:00 AM EDT [facility] [address] [place] [address] PHONE: [phone] FAX: [phone] Name .................. : [facility] JONI Humphrey Acct Number.................. : [id number] ROOM. ................. : MR Number ................... : [id number] Stay type ............. : O/P Discharge Date......... ... : 01/31/21 Admit Date ......... : 01/31/21 Admit Phys .................... : Date of ....... : 1980 Family Phys ................... : UNKNOWN CO Phone .................. : [phone] Age ................................ : 40 Film# .................. .:[id number] Sex ................................. : M Unsigned transcriptions are preliminary reports and do not represent a medical or legal document CT ABD & PELV W/ORAL/IV CONTR [id number] COMPLETE:01/31/21 19:12 VEE 9817 Reason for Exam: S/P 3 VENTRAL HERNIA REPAIRS, INCISIONAL HERNIA CT OF THE ABDOMEN AND PELVIS WITH CONTRAST: INDICATION: Ventral hernia, incisional hernia. FINDINGS: The visualized lower lungs are clear of infiltrate. No enhancing liver lesions. The gallbladder, pancreas and spleen are within normal limits. The bilateral adrenal glands and kidneys are unremarkable. The ureters are unremarkable. No aneurysmal dilatation to the aorta. Oral contrast was given. No bowel obstruction. Normal appendix. The urinary bladder is unremarkable. The prostate gland and seminal vesicles are unremarkable. Scarring identified along the midline. No abdominal wall hernia. No free air or free fluid. IMPRESSION: No hernia. Scarring along the midline. No bowel obstruction. No free air or free fluid. While performing the above CT examination, radiation dose reduction was accomplished utilizing automated exposure control, adjusting of the mA and kV based on the patient's body size and/or the use of imperative reconstructive techniques. CT dose: 1112.1 mGycm Contrast agent in mL: 75 Isovue [address] [place] [address] PHONE: [phone] FAX: [phone] Name .................. : ETTUH KODJO B Acct Number.................. : [id number] ROOM. ................. : Number ................... : [id number] Stay type ............. : O/P Discharge Date......... ... : 01/31/21 Admit Date ......... : 01/31/21 Admit Phys .................... : PURNIMA Date of ....... : 1980 Family Phys ................... : UNKNOWN CO Phone .................. : [phone] Age ................................ : 40 Film# .................. .:[id number] Sex ................................. : M Unsigned transcriptions are preliminary reports and do not represent a medical or legal document CT ABD & PELV W/ORAL/IV CONTR [id number] COMPLETE:01/31/21 19:12 VEE 9817 Reason for Exam: S/P 3 VENTRAL HERNIA REPAIRS, INCISIONAL HERNIA Method of administration: Intravenous Electronically Reviewed and Signed By Geoff Acevedo DO , 02/01/21 11:36, GABINO Transcribe Initials: SAM , Transcribe Date: 02/01/21 03:21, Dictation Date: Copy for: KAROLINE Montilla via fax Copy for: [facility] Page 2 of 2 Name Value Range Interpretation Code Description Data Jana rce(s) Supporting Document(s) ID Date Data Source [id number] 09/20/2020 06:17:00 PM EST [facility] 1 OrderSheet [facility] Emergency Department [address] [place] [address] Phone #: ext- [phone] 09/20/2020 18:01 Patient: JONI BUNDY Sex: M : 1980 Age: 40yWEIGHT:108.4 kg (S) HEIGHT:71 inches (S) BMI:33.3ALLERGIES: NoneCHIEF COMPLAINT: headache, migraine HADIAGNOSIS: HeadacheLAB ORDERSOrder Description Priority Entered Acknowledged InitialedDIAGNOSTIC STUDY ORDERSOrder Description Priority Entered Acknowledged InitialedMEDICATION/IV/DRIP/FLUID ORDERSOrder Description Priority Entered Acknowledged InitialedIV NS 1000 mL 18:59 09/20/2020 19:15 Husam,Bolus : Bolus 1000 Augusta Hull R.N.mL (X1) ;Reglan 10 mg IVP 18:59 09/20/2020 19:16 [place],X1 dose: 10 mg Augusta Hull.Yobany(NOW x1) ;Benadryl 25 mg IVP 18:59 09/20/2020 19:16 Husam,X1 dose: 25 mg Augusta Hull.Yobany(NOW x1) ;Imitrex 6 mg 18:59 09/20/2020 19:16 Husam,Subcutaneous X1 Augusta Hull R.N.dose: 6 mg (NOW ;x1)GENERAL ORDERSOrder Description Priority Entered Acknowledged InitialedSaline Lock 18:59 09/20/2020 19:15 Della Weiner Victoria John R.N. ;[Electronically signed by Justin Weiner R.N. (20:18 09/20/2020)][Jeanne ctronically signed by Augusta Hull (22:40 09/20/2020)][Electronically locked by Justin Weiner R.N. (20:18 09/20/2020)] Name Value Range Interpretation Code Description Data Jana rce(s) Supporting Document(s) ID Date Data Source [id number] 09/20/2020 06:17:00 PM EST [facility] 1 Medication Reconciliation Report [facility] Emergency Department [address] [place] [address] Phone #: [phone] [phone] 09/20/2020 18:01 Patient: JONI BUNDY Sex: M : 1980 Age: 40yWeight: 108.4 kgHeight/Length: 71 in.BMI: 33.3ALLERGIES: NoneThe patient's Home Medications are listed below:THE FOLLOWING MEDICATIONS NEED TO BE RECONCILED: Amitriptyline HCl Oral (25 mg), daily, prnThe source(s) of the original Home Medication information:Not obtained.The following Medications were given to the patient in the Emergency Department:NS [IV] IV Fluids bolus 0, then 500 mL/hr, administered: 19:09/20/2020Reglan [IVP] IVP 10 mg, administered: :09/20/2020Benadryl [IVP] IVP 25 mg, administered: :09/20/2020Imitrex [Subcutaneous] Subcutaneous 6 mg, administered: :09/20/2020The following Medications were prescribed to the patient:Fioricet 50 mg-300 mg-40 mg capsule Take 1 capsule four times a day as needed for pain for 3 days --Dispense 12 capsule. Refills: 0. Substitution permitted.Pharmacy - [facility] [address] ; [place] [address]. . -- Augusta Hull Name Value Range Interpretation Code Description Data Jana rce(s) Supporting Document(s) ID Date Data Source [id number] 09/20/2020 06:17:00 PM EST [facility] 1 Medication Administration Record [facility] Emergency Department [address] [place] [address] Phone #: ext- [phone] 09/20/2020 18:01 Patient: JONI BUNDY Sex: M : 1980 Age: 40yWeight: 108.4 kgHeight/Length: 71 inBMI: 33.3ALLERGIES: None Date/Time Medication Administered Medication OrderedStart NS [IV] IV NS 1000 mL Bolus : Bolus 950245:15 09/20/2020 Dose: IV Fluids mL (X1)Justin Weiner R.N. Rate: 500 mL/hr over 60 minute(s)---- Dispensed: 1000 mL bagStop Site: #1 left AC20:18 09/20/2020Justin Weiner R.N.Given REGLAN [IVP] (METOCLOPRAMIDE Reglan 10 mg IVP X1 dose: 10 mg19:16 09/20/2020 HCL) (NOW x1)Justin Weiner R.N. Dose: 10 mg IVP Site: #1 left ACGiven BENADRYL [IVP] (DIPHENHYDRAMINE Benadryl 25 mg IVP X1 dose: 2519:16 09/20/2020 HCL) mg (NOW x1)Justin Weiner R.N. Dose: 25 mg IVP Site: #1 left ACGiven IMITREX [SUBCUTANEOUS] Imitrex 6 mg Subcutaneous X119:16 09/20/2020 (SUMATRIPTAN SUCCINATE) dose: 6 mg (NOW x1)Justin Weiner R.N. Dose: 6 mg Subcutaneous Name Value Range Interpretation Code Description Data Jana rce(s) Supporting Document(s) ID Date Data Source [id number] 09/20/2020 06:17:00 PM EST [facility] 1 General Instructions [facility] Emergency Department [address] [place] [address] Phone #: ext- [phone] 09/20/2020 18:01 Patient: JONI BUNDY Sex: M : 1980 Age: 40yAcute, poorly controlled migraine headache with aura. No status migrainosus.INSTRUCTIONSRestrict activity. Strenuous activity allowed. Rest.Prescription Medications:Fioricet 50 mg-300 mg-40 mg capsule Take 1 capsule four times a day as needed for pain for 3 days --Dispense 12 capsule. Refills: 0. Substitution permitted.Pharmacy - [facility] - [address] ; [place] [address]. .Follow-up:Return to the emergency department in three days if not better. Follow up with your healthcare provider. ADDITIONAL INFORMATIONMigraine HeadacheA migraine headache is an often severe type of headache. It's different from other types ofheadaches in that symptoms other than pain occur with the it. For instance, a classic migraineheadache means visual symptoms (or aura) such as flashes of light, blind spots or other visionchanges, warns you a headache is coming on. Nausea and vomiting, lightheadedness, sensitivity tolight or sound, and other visual disturbances are common migraine symptoms. The pain may lastfrom a few hours to several days. It's not clear why migraines occur, but certain factors called triggerscan raise the risk of having a migraine attack. A migraine may be triggered by emotional stress ordepression, or by hormone changes during the menstrual cycle. Other triggers include certain birthcontrol pills, overuse of migraine medicines, alcohol or caffeine, foods with tyramine such as agedcheese and wine, eyestrain, weather changes, missed meals, or too little or too much sleep.Home careFollow these tips when taking care of yourself at home: Don't drive yourself home if you were given pain medicine for your headache or are having visual symptoms. Instead, have someone else drive you home. Try to sleep when you get home. You should feel much better when you wake up. 2 General Instructions [facility] Emergency Department [address] [place] [address] Phone #: ext- [phone] 09/20/2020 18:01 Patient: JONI BUNDY Sex: M : 1980 Age: 40y Cold can help ease migraine symptoms. Put an ice pack wrapped in a thin towel on your forehead or at the base of your skull. Put heat on the back of your neck to help ease any neck spasm. Drink only clear liquids or eat a light diet until your symptoms get better. This will help you prevent nausea and vomiting.How to prevent migrainesPay attention to what seems to trigger your headache. Try to stay away from the triggers when youcan. If you have headaches often, consider keeping a headache diary. In it, write down what youwere doing, feeling, or eating in the hours before each headache. Show this to your healthcareprovider to help find the cause of your headaches.If stress seems to be a trigger for your headaches, figure out what is causing stress in your life. Learnnew ways to handle your stress. Ideas include regular exercise, biofeedback, self-hypnosis, yoga,and meditation. Talk with your healthcare provider to find out more information about managingstress. Many books and digital media are also available on this subject.Tyramine is a substance found in many foods. It can trigger a migraine in some people. These foodscontain tyramine: Chocolate Yogurt All cheeses, but especially aged cheeses Smoked or pickled fish and meat, including hernandez, caviar, bologna, pepperoni, and salami Liver Avocados Bananas Figs Raisins Red wineTry staying away from these foods for 1 to 2 months to see if you have fewer headaches.How to treat future headaches Take time out at the first sign of a headache, if possible. Find a quiet, dark, comfortable place to sit or lie down. Let yourself relax or sleep. 3 General Instructions [facility] Emergency Department [address] [place] [address] Phone #: ext- [phone] 09/20/2020 18:01 Patient: JONI BUNDY Sex: M : 1980 Age: 40y Put an ice pack wrapped in a thin towel on your forehead or on the area of greatest pain. A heating pad and massage may help if you are having a muscle spasm and tightness in your neck. If you have been prescribed a medicine to stop a migraine headache, use this at the first warning sign of the headache for best results. First signs may be an aura or pain. If you have been prescribed a medicine to prevent the headaches, it's important to take the medicine as directed. Many of these medicines may take a few weeks to start preventing headaches, so it's important to not give up on them right away. If you continue to have just as many headaches after taking these medicines for a while, talk with your doctor to see if the dose needs to be changed or if a different medicine is advised. If you need to take medicine often for your migraine, talk with your healthcare provider about other ways to prevent your headaches.Follow- up careFollow up with your healthcare provider, or as advised. Talk with your provider if you have frequentheadaches. He or she can figure out a treatment plan. Ask if you can have medicine to take at homethe next time you get a bad headache. This may keep you from having to visit the emergencydepartment in the future. You may need to see a headache specialist (neurologist) if you continue tohave headaches.When to seek medical adviceCall your healthcare provider right away if any of these occur: Your head pain gets worse, or doesn't get better within 24 hours You can't keep liquids down (repeated vomiting) Pain in your sinuses, ears, or throat Fever of 100.4 F (38 C) or higher, or as directed by your healthcare provider Stiff neck Extreme drowsiness, confusion, or fainting Dizziness, or dizziness with spinning sensation (vertigo) Weakness or trouble feeling in an arm or leg, or on one side of your face Trouble talking or seeing [id number] The [employer]. [address] [place] [address]. All rights reserved. 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 Always follow your healthcare professional's instructions. You have been given the following additional information: Headache, Migraine, Classic Restrict activity. Strenuous activity allowed. Rest.(Electronically signed by Augusta Hull 09/20/2020 22:40) Name Value Range Interpretation Code Description Data Jana rce(s) Supporting Document(s) ID Date Data Source [id number] 09/20/2020 06:17:00 PM EST [facility] 1 Clinical Report - Nurses [facility] Emergency Department [address] [place] [address] Phone #: ext- [phone] 09/20/2020 18:01 Patient: JONI BUNDY Sex: M : 1980 Age: 40yTRIAGEArrived by private vehicle. Historian: patient. Unaccompanied.Acuity: LEVEL 3.Chief Complaint: HEADACHE.Alert.This started 1 week. Onset. (1 week). He has had nausea. ( dizzy).Treatment MEDICAL LAB TECHNICIAN:None.SEPSIS SCREEN: SIRS SCREEN NEGATIVE. SEPSIS SCREEN NEGATIVE. No suspected or confi rmedsigns of infection present. --18:08 09/20/20 Elisa Hernandez R.N.18:02 09/20/20. BP: 133/86. MAP: 101. HR: 86. RR: 18. O2 saturation: 97%. Temp: 97.4 F. Pain levelnow: 7/10. --18:08 09/20/20 Elisa Hernandez R.N.Weight: 108.4 kg stated. Height/Length: 71 inches Per Patient. BMI: 33.3. --18:02 09/20/20 Elisa Hernandez R.N.MedicationsAmitriptyline HCl Oral (Tablet 25 mg), daily as needed. --18:04 09/20/20 Elisa Hernandez R.N.AllergiesNone. --18:03 09/20/20 Elisa Hernandez R.N.PROBLEMS:Obstructive Sleep Apnea.Migraine Headache. --18:04 09/20/20 Elisa Hernandez R.N.ADDITIONAL SURGERIES:Appendectomy.Hernia Repair. --18:04 09/20/20 Elisa Hernandez R.N.HistoryPAST MEDICAL HX: Immunizations: up-to-date.SOCIAL HX: Never smoker. No alcohol use or drug use. No recent travel. No known contact with a sickindividual. He was offered HIV testing but declined and hepatitis C testing but declined. He has nottraveled outside the [place] 2 Clinical Report - Nurses [facility] Emergency Department [address] [place] [address] Phone #: [phone] 09/20/2020 18:01 Patient: JONI BUNDY Sex: M : 1980 Age: 40y Infectious disease exposure: No infectious disease exposure. Patient is not a known carrier of tuberculosis, hepatitis, HIV, MRSA or VRE. Patient is not a known carrier of CRE. SELF HARM ASSESSMENT: Self harm assessment was performed. The patient answered "no" to the question(s) "Have you recently felt down, depressed, or hopeless?", "Do you have thoughts of harming or killing yourself?", "Do you have a plan for harming or killing yourself?", "Have you recently had thoughts about harming or killing others?", "Do you have any dangerous items in your possession?", "Have you noticed less interest or pleasure in doing things?", "Are you here because you tried to hurt yourself?" and "Have you ever tried to hurt yourself before today?". ABUSE ASSESSMENT: Abuse assessment. Abuse denied. No suspicion of abuse. No report of abuse. NUTRITIONAL RISK ASSESSMENT: The nutritional risk assessment revealed no deficiencies. FUNCTIONAL ASSESSMENT: Functional assessment: no impairments noted. LEARNING NEEDS ASSESSMENT: The learning needs assessment revealed no barriers. FALL RISK ASSESSMENT: Fall risk assessment completed. No risk factors identified. SKIN INTEGRITY ASSESSMENT: Skin integrity risk assessment completed. No skin integrity risk identified. --18:08 09/20/20 Elisa Hernandez R.N. Interventions Identification band on patient. To treatment room. --18:08 09/20/20 Elisa Hernandez R.N.PHYSICAL ASSESSMENTGENERAL / NEURO / PSYCH: Alert. Oriented X 4. Appears in pain. Speech within normal limits.HEENT: Pupils equal, round and reactive to light.RESPIRATORY: Respirations not labored.SKIN: Skin is warm and dry. --19:32 09/20/20 Justin Weiner R.N.NURSING PROGRESS NOTES19:13 09/20/2020 Site #1 started via IV in the left antecubital space with an 20g angiocath; one attempt.Saline lock flushed with 10 mL saline. --19:13 09/20/20 Berna Parker 19:15 09/20/2020 Started bag #1 1000 mL IV Fluids NS; at 500 mL/hr over 60 minute(s) via site #1 --19:15 09/20/20 Justin Weiner R.N. 19:16 09/20/2020 Reglan (Metoclopramide HCl) IVP 10 mg given over 3 minute(s) via site #1. --19:16 09/20/20 Justin Weiner R.N. 19:16 09/20/2020 Benadryl (diphenhydrAMINE HCl) IVP 25 mg given over 3 minute(s) via site #1. --19:16 09/20/20 Justin Weiner R.N. 3 Clinical Report - Nurses [facility] Emergency Department [address] [place] [address] Phone #: ext- [phone] 09/20/2020 18:01 Patient: JONI BUNDY Sex: M : 1980 Age: 40y 19:16 09/20/2020 Imitrex (SUMAtriptan Succinate) Subcutaneous 6 mg given. --19:16 09/20/20 Justin Weiner R.N. Reassurance given to the patient. Reassessment after medication administered. Pain gone now. He is sleeping and has had no adverse reaction. Overall patient status- he states feels better. --20:17 09/20/20 Justin Weiner R.N. Side rails up x 1. Bed placed in lowest position. Brakes of bed on. --20:18 09/20/20 Justin Weiner R.N. 20:18 09/20/2020 IV Fluids NS via IV site #1 Discontinued: bag #1 completed. Total amount in fused: 1000 mL. --20:18 09/20/20 Justin Weiner R.N.DISPOSITION / DISCHARGE No learning barriers present. Discharge instructions provided and reviewed with the patient. Patient verbalized understanding. Written instructions provided in Jordanian. The patient was discharged by the physician. He was discharged home. He left ambulatory and via private vehicle. Patient driving. --20:17 09/20/20 Justin Weiner R.N. 20:17 09/20/20. BP: 136/72. MAP: 93. HR: 68. RR: 18. O2 saturation: deferred. Temp: deferred. Pain level now: 10. --20:17 09/20/20 Justin Weiner R.N.Locked/Released at 09/20/2020 20:18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
[2021-07-27] MEDS ORDERED: ATIV1TAB10 PO (09:38)
[2021-07-27] MEDS ORDERED: LOSA100T50 PO (09:38)
[2021-07-27] MEDS ORDERED: ZOLO100T PO (09:38)
[2021-07-27] MEDS ORDERED: NS 1,000 ML IV ONE (11:30)
[2021-07-27] MEDS ORDERED: KETOROLAC 30 MG/ML 1ML VIAL IV ONE (11:30)
[2021-07-27] MEDS ORDERED: ONDANSETRON 4MG/2ML VIAL IV ONE (11:30)
[2021-07-27] MEDS ORDERED: diphenhydrAMINE 50MG/ML VIAL (J1200) IV ONE (11:30)
--- OUTSIDE RECORDS SUMMARY | 2021-07-27 12:08 | CCD ---
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 present. Discharge instructions provided and reviewed with the patient. Reviewed medication(s). Patient verbalized understanding. Written instructions provided in Panamanian. The patient was discharged home and unaccompanied at time of discharge. He left ambulatory and via private vehicle. Patient driving. --18:39 05/07/21 Elisa Hernandez R.N. Departure time: 18:39 05/07/2021. --18:39 05/07/21 Elisa Hernandez R.N.Locked/Released at 05/07/2021 18:39 by Elisa Hernandez R.N. Name Value Range Interpretation Code Description Data Jana rce(s) Supporting Document(s) ID Date Data Source [id number] 05/07/2021 03:52:00 PM EDT [facility] 1 Clinical Report - Physicians/Mid Levels [facility] Emergency Department [address] [place] [address] Phone #: ext- [phone] 05/07/2021 15:40 Patient: [...] distress. 2 Clinical Report - Physicians/Mid Levels [facility] Emergency Department [address] [place] [address] Phone #: ext- [phone] 05/07/2021 15:40 [id number] Sex: M : 1980 Age: 41y Eyes: [...] pain. 3 Clinical Report - Physicians/Mid Levels [facility] Emergency Department [address] [place] [address] Phone #: ext [phone] 05/07/2021 15:40 Patient: JONI BUNDY [facility]#: [id number] Sex: M : 1980 Age: 41yINSTRUCTIONS (Activity [...] tablet. Refills: 0. Substitution permitted. Pharmacy - [facility] [id number] ; [place] [address]. Phone: . Understanding of the discharge instructions verbalized by patient. [facility] with: [facility], , , [id number] [place] [address], , [place], [address] Follow up in about five days. Call for an appointment. Reason for referral: evaluation and treatment. Summary of care provided to patient via paper.(Electronically signed by JEFFY Watkins 05/07/2021 18:30) Name Value Range Interpretation Code Description Data Jana rce(s) Supporting Document(s) ID Date Data Source [id number] 03/11/2021 11:39:00 PM EDT [facility] Name Value Range Interpretation Code Description Data Jana rce(s) Supporting Document(s) SARS coronavirus 2 RNA [Presence] in Res piratory specimen by KELLI with probe detection NEGATIVE [place] This lab was ordered by [facility] a nd reported by [facility]. ID Date Data Source [id number] 02/01/2021 11:36:00 AM EDT [facility] [address] [place] [address] PHONE: [phone] FAX: [phone] Name .................. : [facility] JONI Humphrey Acct Number.................. : [id number] ROOM. ................. : MR Number ................... : [id number] Stay type ............. : O/P Discharge Date......... [...] document CT ABD & PELV W/ORAL/IV CONTR [id number] COMPLETE:01/31/21 19:12 VEE 9817 Reason for Exam: [...] mL: 75 Isovue [address] [place] [address] PHONE: [phone] FAX: [phone] Name .................. : ETTUH KODJO B Acct Number.................. : [id number] ROOM. ................. : Number ................... : [id number] Stay type ............. : O/P Discharge Date......... ... : 01/31/21 Admit Date ......... : 01/31/21 Admit Phys .................... : PURNIMA Date of ....... : 1980 Family Phys ................... : UNKNOWN CO Phone .................. : [phone] Age ................................ : 40 Film# .................. .:[id number] Sex ................................. : M Unsigned transcriptions are preliminary reports and do not represent a medical or legal document CT ABD & PELV W/ORAL/IV CONTR [id number] COMPLETE:01/31/21 19:12 VEE 9817 Reason for Exam: S/P 3 VENTRAL HERNIA REPAIRS, INCISIONAL HERNIA Method of administration: Intravenous Electronically Reviewed and Signed By Geoff Acevedo DO , 02/01/21 11:36, GABINO Transcribe Initials: SAM , Transcribe Date: 02/01/21 03:21, Dictation Date: Copy for: KAROLINE Montilla via fax Copy for: [facility] Page 2 of 2 Name Value Range Interpretation Code Description Data Jana rce(s) Supporting Document(s) ID Date Data Source [id number] 09/20/2020 06:17:00 PM EST [facility] 1 OrderSheet [facility] Emergency Department [address] [place] [address] Phone #: ext- [phone] 09/20/2020 18:01 Patient: [...] ;Reglan 10 mg IVP 18:59 09/20/2020 19:16 [place],X1 dose: 10 mg Augusta Hull.Yobany(NOW x1) ;Benadryl [...] rce(s) Supporting Document(s) ID Date Data Source [id number] 09/20/2020 06:17:00 PM EST [facility] 1 Medication Reconciliation Report [facility] Emergency Department [address] [place] [address] Phone #: [phone]- [phone] 09/20/2020 18:01 Patient: JONI BUNDY Sex: M [...] 12 capsule. Refills: 0. Substitution permitted.Pharmacy - [facility] [id number] [facility] ; [place] [address]. . -- Augusta Hull Name Value Range Interpretation Code Description Data Jana rce(s) Supporting Document(s) ID Date Data Source [id number] 09/20/2020 06:17:00 PM EST [facility] 1 Medication Administration Record [facility] Emergency Department [address] [place] [address] Phone #: ext- [phone] 09/20/2020 18:01 Patient: JONI BUNDY Sex: M : 1980 Age: 40yWeight: 108.4 kgHeight/Length: 71 inBMI: 33.3ALLERGIES: None Date/Time Medication Administered Medication OrderedStart NS [IV] IV NS 1000 mL Bolus : Bolus [id number] 09/20/2020 Dose: IV Fluids mL (X1)Justin Weiner [...] rce(s) Supporting Document(s) ID Date Data Source [id number] 09/20/2020 06:17:00 PM EST [facility] 1 General Instructions [facility] Emergency Department [address] [place] [address] Phone #: ext- [phone] 09/20/2020 18:01 Patient: JONI BUNDY Sex: M : 1980 Age: 40yAcute, poorly controlled migraine headache with aura. No status migrainosus.INSTRUCTIONSRestrict activity. Strenuous activity allowed. Rest.Prescription Medications:Fioricet 50 mg-300 mg-40 mg capsule Take 1 capsule four times a day as needed for pain for 3 days --Dispense 12 capsule. Refills: 0. Substitution permitted.Pharmacy - [facility] - [id number] [facility] ; [place] [address]. .Follow-up:Return to the emergency department in three [...] when you wake up. 2 General Instructions [facility] Emergency Department [address] [place] [address] Phone #: ext- [phone] 09/20/2020 18:01 Patient: [...] yourself relax or sleep. 3 General Instructions [facility] Emergency Department [address] [place] [address] Phone #: ext- [phone] 09/20/2020 18:01 Patient: [...] of your face Trouble talking or seeing [phone] [employer]. [address] [place] [address]. All rights reserved. 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 Always follow your healthcare professional's instructions. You have been given the following additional information: Headache, Migraine, Classic Restrict activity. Strenuous activity allowed. Rest.(Electronically signed by Augusta Hull 09/20/2020 22:40) Name Value Range Interpretation Code Description Data Jana rce(s) Supporting Document(s) ID Date Data Source [id number] 09/20/2020 06:17:00 PM EST [facility] 1 Clinical Report - Nurses [facility] Emergency Department [address] [place] [address] Phone #: ext- [phone] 09/20/2020 18:01 Patient: JONI BUNDY Sex: M : 1980 Age: 40yTRIAGEArrived by private vehicle. Historian: patient. Unaccompanied.Acuity: LEVEL 3.Chief Complaint: HEADACHE.Alert.This started 1 week. Onset. (1 week). He has had nausea. ( dizzy).Treatment MANUFACTURERS AGENT:None.SEPSIS SCREEN: SIRS SCREEN NEGATIVE. SEPSIS SCREEN NEGATIVE. [...] [place] 2 Clinical Report - Nurses [facility] Emergency Department [address] [place] [address] Phone #: [phone] 09/20/2020 18:01 Patient: JOIN BUNDY Sex: M : 1980 Age: 40y [...] Weiner R.N. 3 Clinical Report - Nurses [facility] Emergency Department [address] [place] [address] Phone #: ext- [phone] 09/20/2020 18:01 Patient: [...] amount in fused: 1000 mL. --20:18 09/20/20 Justni Weiner R.N.DISPOSITION / DISCHARGE No learning barriers present. Discharge instructions provided and reviewed with the patient. Patient verbalized understanding. Written instructions provided in Panamanian. The patient was discharged by the physician. [...] rce(s) Supporting Document(s) ID Date Data Source [id number] 09/20/2020 06:17:00 PM EST [facility] 1 Clinical Report - Physicians/Mid Levels [facility] Emergency Department [address] [place] [address] Phone #: ext- [phone] 09/20/2020 18:01 Patient: JONI BUNDY Sex: M [...] Apnea. 2 Clinical Report - Physicians/Mid Levels [facility] Emergency Department [address] [place] [address] Phone #: ext- [phone] 09/20/2020 18:01 Patient: JONI BUNDY [facility]#: [id number] Sex: M : 1980 Age: 40y Migraine Headache. Additional Surgeries: Appendectomy. Hernia Repair [04/02/2019]. (Emergency in [facility]) Hernia Repair. Medications: Amitriptyline HCl Oral [...] 22:41. 3 Clinical Report - Physicians/Mid Levels [facility] Emergency Department [address] [place] [address] Phone #: ext- [phone] 09/20/2020 18:01 Patient: JONI BUNDY Sex: M : 1980 Age: 40yCLINICAL IMPRESSION Acute, poorly controlled migraine headache with aura. No status migrainosus.INSTRUCTIONS Restrict activity. Strenu ous activity allowed. Rest. Prescription Medications: Fioricet 50 mg-300 mg-40 mg capsule Take 1 capsule four times a day as needed for pain for 3 days -- Dispense 12 capsule. Refills: 0. Substitution permitted. Pharmacy - [facility] [id number] [facility] ; [place] [address]. . Follow-up: Return to the emergency department in three days if not better. Follow up with your healthcare provider.(Electronically signed by Augusta Hull 09/20/2020 22:40) Name Value Range Interpretation Code Description Data Jana rce(s) Supporting Document(s) Procedure Social History No Information Vital Signs ID Date Data Source UNK Name Value Range Interpretation Code Description Data Source(s) Body mass index (BMI) [Ratio] 35.0 kg/m2 35.0 k g/m2 [facility] (Piper Mendes MD) Body temperature 98.1 [degF] 98.1 [degF] MEDZAINAB (Piper Mendes MD) Systolic blood pressure 137 mm[Hg] 137 mm[Hg] M EDENT (Piper Mendes MD) Diastolic blood pressure 81 mm[Hg] 81 mm[Hg] [facility] (Piper Mendes MD) Heart rate 95 /min 95 /min [facility] (Piper Mendes MD) Oxygen saturation in Arterial blood by Pulse oximetry 98 % 98 % [facility] (Piper Mendes MD) Body height 71 [in_i] 71 [in_i] [facility] (Piper Mendes MD) 5'11" Body weight 251.00 [lb_av] 251.00 [lb_av] MEDEN T (Piper Mendes MD) Respiratory rate 12 /min 12 /min [facility] ( [facility], ) Body height 71 [in_i] 71 [in_i] [facility] ([facility], ) 5'11" Body weight 220.00 [lb_av] 220.00 [lb_av] MEDEN T ([facility]) Body mass index (BMI) [Ratio] 30.7 kg/m2 30.7 k g/m2 [facility] ([facility], ) Marydel body weight 172 [lb_av] 172 [lb_av] [facility] T ([facility]) Body mass index (BMI) [Ratio] 35.6 kg/m2 [...] Systolic blood pressure 145 mm[Hg] 145 mm[Hg] ED[facility] (Piper Mendes MD) Diastolic blood pressure 79 mm[Hg] 79 mm[Hg] [facility] (Piper Mendes MD) Heart rate 90 /min 90 /min [facility] (Piper Mendes MD) Oxygen saturation in Arterial blood by Pulse oximetry 97 % 97 % [facility] (Piper Mendes MD) Systolic blood pressure 140 mm[facility]] 140 [facility] Diastolic blood pressure 82 mm[Hg] 82 mm[Hg] [facility] Heart rate 85 /min 85 /min [facility] Body temperature 98.6 [degF] 98.6 [degF] [facility] Respiratory rate 18 /min 18 /min [facility]) Oxygen saturation in Arterial blood by Pulse oximetry 99 % 99 % [facility] Body weight 248.00 [lb_av] 248.00 [lb_av] [facility] ([facility]) Body weight 112.493 kg 112.493 kg [facility] Body height 71 [in_i] 71 [in_i] [facility] ([facility]) 5'11" Body mass index (BMI) [Ratio] 34.6 kg/m2 34.6 k g/m2 [facility] Body surface area Derived from formula 2.31 m2 2.31 m2 [facility]) Oxygen saturation in Arterial blood by Pulse oximetry 96 % 96 % [facility]Piper Mendes [facility]) Body temperature 97.3 [degF] 97.3 [degF] [facility] (Piper Mendes MD) Systolic blood [...] [degF] 98.6 [degF] [facility] (Piper Mendes MD) Systolic blood [...] Body height 71 [in_i] 71 [in_i] [facility] ([facility], ) 5'11" Body weight 220.00 [lb_av] 220.00 [lb_av] MED[facility] T ([facility], ) Body mass index (BMI) [Ratio] 30.7 kg/m2 30.7 k g/m2 [facility] ([facility], ) Marydel body weight 172 [lb_av] 172 [lb_av] [facility] T ([facility], ) Respiratory rate 12 /min 12 /min [facility] ( [facility], ) Body mass index (BMI) [Ratio] 33.4 kg/m2 33.4 k g/m2 [facility] ([facility]) Body surface area Derived from formula 2.28 m2 2.28 m2 [facility] ([facility]) Systolic blood pressure 140 mm[Hg] 140 mm[Hg] M EDENT ([facility]) Diastolic blood pressure 86 mm[Hg] 86 mm[Hg] [facility] ([facility]) Heart rate 80 /min 80 /min [facility] ([facility]) Body temperature 98.8 [degF] 98.8 [degF] [facility] ([facility]) Respiratory rate 16 /min 16 /min [facility] ( [facility]) Oxygen saturation in Arterial blood by Pulse oximetry 97 % 97 % [facility] ([facility]) Body weight 239.38 [lb_av] 239.38 [lb_av] [facility] T ([facility]) Body weight 108.581 kg 108.581 kg [facility] ([facility]) Body height 71 [in_i] 71 [facility]_i] [facility] 5'11" Systolic blood pressure 139 mm[Hg] 139 mm[Hg] M EDENT ([facility]) Diastolic blood pressure 79 mm[Hg] 79 mm[Hg] [facility] ([facility]) Heart rate 89 /min 89 /min [facility] ([facility]) Body temperature 97.3 [degF] 97.3 [degF] [facility] ([facility]) Respiratory rate 16 /min 16 /min [facility] ( [facility]) Oxygen saturation in Arterial blood by Pulse oximetry 98 % 98 % [facility] ([facility]) Body weight 239.12 [lb_av] 239.12 [lb_av] [facility] T ([facility]) Body weight 108.467 kg 108.467 kg [facility] ([facility]) Body height 71 [in_i] 71 [in_i] [facility] ([facility]) 5'11" Body mass index (BMI) [Ratio] 33.3 kg/m2 33.3 k g/m2 [facility] ([facility]) Body surface area Derived from formula 2.27 m2 2.27 m2 [facility] ([facility]) Respiratory rate 12 /min 12 /min [facility] ( [facility], ) Body height 71 [in_i] 71 [in_i] [facility] ([facility], ) 5'11" Body weight 220.00 [lb_av] 220.00 [lb_av] MED[facility] T ([facility], ) Body mass index (BMI) [Ratio] 30.7 kg/m2 30.7 k g/m2 [facility] ([facility], ) Marydel body weight 172 [lb_av] 172 [lb_av] [facility] T ([facility], ) Body temperature 97.1 [degF] 97.1 [degF] [facility] ([facility]) Respiratory rate 16 /min 16 /min [facility] ( [facility]) Body weight 239.00 [lb_av] 239.00 [lb_av] [facility] T ([facility]) Body weight 108.410 kg 108.410 kg [facility] ([facility]) Body height 71 [in_i] 71 [in_i] [facility] ([facility]) 5'11" Body mass index (BMI) [Ratio] 33.3 kg/m2 33.3 k g/m2 [facility] ([facility]) Body surface area 2.27 m2 2.27 m2 [facility] ([facility]) Systolic blood pressure 126 mm[Hg] 126 mm[Hg] M [facility] ([facility]) Diastolic blood pressure 77 mm[Hg] 77 mm[Hg] [facility] ([facility]) Heart rate 85 /min 85 /min [facility] ([facility]) ID Date Data Source [id number] 05/31/2020 10:34:30 AM EDT [facility] Name Value Range Interpretation Code Description Data Source(s) WEIGHT RECORDED 252.80 pounds 252.80 pounds [facility] Height 71 Inches 071 Inches [facility]
[2021-07-27] MEDS ORDERED: ISOVUE-370 76% 100ML VIAL As Ordered ONE (12:22)
[2021-07-27 12:25] LABS: BASO % 0.8 % (0.0-1.0); EOS # 0.2 10^3/uL (0.0-0.5); EOS % 3.2 % (0.0-3.0); HEMOGLOBIN 14.7 g/dl (13.5-17.5); LYMPH # 1.8 10^3/uL (1.5-5.0); LYMPH % 37.9 % (24.0-44.0); MEAN CORPUSCULAR HEMOGLOBIN 29.2 pg (27.0-33.0); MEAN CORPUSCULAR HGB CONC 32.7 g/dl (32.0-36.5); MEAN CORPUSCULAR VOLUME 89.3 fl (80.0-96.0); MONO # 0.5 10^3/uL (0.0-0.8); MONO % 10.1 % (2.0-8.0); NEUTROPHILS # 2.3 10^3/uL (1.5-8.5); NEUTROPHILS % 47.4 % (36.0-66.0); RED BLOOD COUNT 5.04 10^6/uL (4.30-6.10); WHITE BLOOD COUNT 4.8 10^3/uL (4.0-10.0)
--- NOTE | 2021-07-27 12:42 | REP ---
INDICATION: midline abd pain. COMPARISON: Multiple the latest 05/24/2021 TECHNIQUE: Standard helical technique after the intravenous administration of 100 cc Isovue 370 FINDINGS: The lung bases are clear. The liver, gallbladder, spleen, pancreas, adrenal glands, and kidneys are again seen to be within normal limits. The abdominal aorta and para-aortic regions are within normal limits. There is no significant change in appearance of the bowel loops or the mesenteries. There is no evidence of a mass or adenopathy. There is no evidence of free fluid or free air. 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 Bone window technique throughout the exam shows the osseous structures to be stable and intact. IMPRESSION: There is no evidence of acute disease or significant change compared to the prior exam with findings as described above. <Electronically signed by Ean Rojas > 07/27/21 6400
[2021-07-27 14:26] LABS: BLOOD UREA NITROGEN 11 MG/DL (7-18); CALCIUM LEVEL 9.2 MG/DL (8.5-10.1); CARBON DIOXIDE LEVEL 30 MEQ/L (21-32); CHLORIDE LEVEL 103 MEQ/L (98-107); CREATININE FOR GFR 1.03 MG/DL (0.70-1.30); GLOMERULAR FILTRATION RATE > 60.0 (>60); GLUCOSE, FASTING 80 MG/DL (70-100); SODIUM LEVEL 138 MEQ/L (136-145)
[2021-07-27 14:27] LABS: ALBUMIN 3.8 GM/DL (3.2-5.2); ALT/SGPT 50 U/L (12-78); BILIRUBIN,DIRECT < 0.1 MG/DL (0.0-0.2); BILIRUBIN,TOTAL 0.5 MG/DL (0.2-1.0); CPK CREATINE PHOSPHOKINASE 728 U/L (39-308); LIPASE 100 U/L (73-393)
[2021-07-27] MEDS ORDERED: ONDA4TAB6 PO (14:49)
[2021-07-27 15:07] VITALS: BP 132/92
== END 2021-07-27 15:09 | disposition home or self-care (01) ==
LOC: M ED 09:27
DX: G43.709 Chronic migraine without aura, not intractable, without status migrainosus (principal); I10 Essential (primary) hypertension; G47.33 Obstructive sleep apnea (adult) (pediatric); F41.9 Anxiety disorder, unspecified; F33.9 Major depressive disorder, recurrent, unspecified; Z79.899 Other long term (current) drug therapy; Z88.7 Allergy status to serum and vaccine; Z90.49 Acquired absence of other specified parts of digestive tract; Z98.890 Other specified postprocedural states; Z82.0 Family history of epilepsy and other diseases of the nervous system
CPT/HCPCS: 36415; 74177; 80047; 80048; 80076; 81001; 82550; 83690; 83735; 85025; 96374; 96375; 99284; J1200; J1885; J2405; Q9967

== ENCOUNTER → 2021-08-01 | Outpatient (CLI) | payer OTHER ==
[~2021-08-01] MED LIST changes: +ATIV1TAB10 PO; +LOSA100T50 PO; +ONDA4TAB6 PO; +ZOLO100T PO
[2021-08-01 11:06] LABS: BASO # 0.1 10^3/uL (0.0-0.2); BASO % 1.2 % (0.0-1.0); EOS # 0.2 10^3/uL (0.0-0.5); EOS % 3.1 % (0.0-3.0); HEMATOCRIT 40.9 % (42.0-52.0); HEMOGLOBIN 13.6 g/dl (13.5-17.5); LYMPH # 1.5 10^3/uL (1.5-5.0); MEAN CORPUSCULAR HEMOGLOBIN 29.6 pg (27.0-33.0); MEAN CORPUSCULAR HGB CONC 33.3 g/dl (32.0-36.5); MEAN CORPUSCULAR VOLUME 89.1 fl (80.0-96.0); MONO # 0.7 10^3/uL (0.0-0.8); MONO % 12.8 % (2.0-8.0); NEUTROPHILS # 2.8 10^3/uL (1.5-8.5); NEUTROPHILS % 53.5 % (36.0-66.0); PLATELET COUNT, AUTOMATED 208 10^3/uL (150-450); RED BLOOD COUNT 4.59 10^6/uL (4.30-6.10); WHITE BLOOD COUNT 5.2 10^3/uL (4.0-10.0)
[2021-08-01 11:54] LABS: ALBUMIN 3.9 GM/DL (3.2-5.2); ALT/SGPT 50 U/L (12-78); BILIRUBIN,TOTAL 0.5 MG/DL (0.2-1.0); BLOOD UREA NITROGEN 17 MG/DL (7-18); CALCIUM LEVEL 9.6 MG/DL (8.5-10.1); CARBON DIOXIDE LEVEL 28 MEQ/L (21-32); CHLORIDE LEVEL 105 MEQ/L (98-107); CPK CREATINE PHOSPHOKINASE 1386 U/L (39-308); CREATININE FOR GFR 1.15 MG/DL (0.70-1.30); GLOMERULAR FILTRATION RATE > 60.0 (>60); GLUCOSE, FASTING 118 MG/DL (70-100); POTASSIUM SERUM 4.1 MEQ/L (3.5-5.1); SODIUM LEVEL 140 MEQ/L (136-145)
== END ==
LOC: M PLALAB 07:48
PROVIDERS: ATTEND Psychiatry & Neurology Neurology
DX: M79.10 Myalgia, unspecified site (principal)

== ENCOUNTER → 2021-08-09 | Outpatient (CLI) | payer OTHER ==
[2021-08-09 10:45] LABS: HEMOGLOBIN A1c 6.3 %
[2021-08-09 11:00] LABS: RHEUMATOID FACTOR QUANT < 10.0 IU/ML (<15.0); T UPTAKE 34 % (33-40); THYROID STIMULATING HORMONE 0.752 uIU/ML (0.358-3.740); THYROXINE (T4) 11.8 UG/DL (4.5-12.0); TOTAL PROTEIN 7.2 GM/DL (6.4-8.2)
[2021-08-09 11:24] LABS: VITAMIN B12 LEVEL 410 PG/ML
[2021-08-09 11:25] LABS: FOLATE 9.8 NG/ML
[2021-08-10 10:34] LABS: ALBUMIN 4.72 GM/DL (3.29-5.55); ALBUMIN % 65.5 % (55.8-66.1); ALPHA-1-GLOBULIN % 3.8 % (2.9-4.9); ALPHA-1-GLOBULINS 0.27 GM/DL (0.17-0.41); ALPHA-2-GLOBULINS 0.54 GM/DL (0.42-0.99); ALPHA-2-GLOBULINS % 7.5 % (7.1-11.8); BETA-1-GLOBULINS 0.42 GM/DL (0.28-0.60); BETA-1-GLOBULINS % 5.8 % (4.7-7.2); BETA-2-GLOBULINS 0.39 GM/DL (0.19-0.55); BETA-2-GLOBULINS % 5.4 % (3.2-6.5); GAMMA GLOBULINS 0.86 GM/DL (0.65-1.58)
== END ==
LOC: M PLALAB 09:08
PROVIDERS: ATTEND Psychiatry & Neurology Neurology
DX: E11.40 Type 2 diabetes mellitus with diabetic neuropathy, unspecified (principal); E07.9 Disorder of thyroid, unspecified

== ENCOUNTER → 2021-09-10 | Outpatient (CLI) | payer OTHER | LOC: M PLALAB 12:15 | PROVIDERS: ATTEND Internal Medicine | DX: G72.9 Myopathy, unspecified (principal) ==

== ENCOUNTER → 2021-09-10 | Outpatient (REF) | payer OTHER ==
[2021-09-10 12:10] LABS: APPEARANCE, URINE CLEAR (CLEAR); BACTERIA, URINE AUTO NEGATIVE (NEGATIVE); BILIRUBIN, URINE AUTO NEGATIVE (NEGATIVE); BLOOD, URINE BLOOD NEGATIVE (NEGATIVE); COLOR, URINE YELLOW (YELLOW); GLUCOSE, URINE (UA) AUTO NEGATIVE (NEGATIVE); KETONE, URINE AUTO NEGATIVE (NEGATIVE); LEUKOCYTE ESTERASE, URINE AUTO NEGATIVE (NEGATIVE); NITRITE, URINE AUTO NEGATIVE (NEGATIVE); PROTEIN, URINE AUTO 2+ mg/dL (NEGATIVE); RBC, URINE AUTO 1 /HPF (0-3); SPECIFIC GRAVITY URINE AUTO 1.015 (1.002-1.035); SQUAMOUS EPITHELIAL CELL UR AU 0 /HPF (0-6); UROBILINOGEN, URINE AUTO 0.2 mg/dL (0.0-2.0); WBC, URINE AUTO 3 /HPF (0-3)
[2021-09-10 12:12] LABS: BASO % 0.4 % (0.0-1.0); EOS # 0.1 10^3/uL (0.0-0.5); HEMATOCRIT 46.8 % (42.0-52.0); HEMOGLOBIN 15.4 g/dl (13.5-17.5); LYMPH # 1.5 10^3/uL (1.5-5.0); LYMPH % 32.1 % (24.0-44.0); MEAN CORPUSCULAR HEMOGLOBIN 29.1 pg (27.0-33.0); MEAN CORPUSCULAR HGB CONC 32.9 g/dl (32.0-36.5); MEAN CORPUSCULAR VOLUME 88.3 fl (80.0-96.0); MONO # 0.5 10^3/uL (0.0-0.8); MONO % 10.1 % (2.0-8.0); NEUTROPHILS # 2.6 10^3/uL (1.5-8.5); PLATELET COUNT, AUTOMATED 220 10^3/uL (150-450); WHITE BLOOD COUNT 4.7 10^3/uL (4.0-10.0)
[2021-09-10 12:33] LABS: ERYTHROCYTE SEDIMENTATION RATE 7 mm/hr (0-15)
[2021-09-10 12:39] LABS: TOTAL PROTEIN,RANDOM URINE 59.3 MG/DL (0.0-12.0)
[2021-09-10 13:38] LABS: ALBUMIN 4.3 GM/DL (3.2-5.2); ALT/SGPT 50 U/L (12-78); BILIRUBIN,DIRECT 0.2 MG/DL (0.0-0.2); BILIRUBIN,TOTAL 0.7 MG/DL (0.2-1.0); BLOOD UREA NITROGEN 10 MG/DL (7-18); C REACTIVE PROTEIN QUANTITATIV 0.55 MG/DL (0.00-0.30); CALCIUM LEVEL 9.6 MG/DL (8.5-10.1); CARBON DIOXIDE LEVEL 29 MEQ/L (21-32); CHLORIDE LEVEL 103 MEQ/L (98-107); COMPLEMENT C3 191 MG/DL (90-180); COMPLEMENT C4 36 MG/DL (10-40); CREATININE FOR GFR 0.99 MG/DL (0.70-1.30); GLOMERULAR FILTRATION RATE > 60.0 (>60); GLUCOSE, FASTING 114 MG/DL (70-100); LDH LACTATE DEHYDROGENASE 236 U/L (87-241); MYOGLOBIN 149 NG/ML (16-116); POTASSIUM SERUM 4.2 MEQ/L (3.5-5.1); SODIUM LEVEL 138 MEQ/L (136-145)
[2021-09-11 09:51] LABS: DRVV SCREEN 40.4 SEC
[2021-09-11 09:54] LABS: PTT LUPUS TYPE ANTICOAG SCREEN 1.1 (0-1.2)
[2021-09-24 18:09] LABS: ANTI JO-1 ANTIBODIES <20 Units (<20); COMPLEMENT TOTAL (CH50) > 60 U/mL (>41); Mi-2 ANTIBODIES Negative (Negative)
== END ==
LOC: M SFHCRHEU 10:19
PROVIDERS: ATTEND Internal Medicine
DX: G72.9 Myopathy, unspecified (principal); M25.40 Effusion, unspecified joint; R80.8 Other proteinuria
CPT/HCPCS: 36415; 80048; 80076; 81001; 82550; 82570; 83516; 83520; 83615; 83874; 84156; 85025; 85652; 85730; 86140; 86160; 86162; 86235; G0463

== ENCOUNTER → 2021-10-03 | Outpatient (REF) | payer OTHER | LOC: M PLALAB 13:11 | PROVIDERS: ATTEND Internal Medicine | DX: G72.9 Myopathy, unspecified (principal) ==

== ENCOUNTER → 2021-11-21 | Outpatient (REF) | payer OTHER ==
[~2021-11-21] MED LIST changes: +LOSA100T45 PO; -LOSA100T50 PO
[2021-11-21 17:51] LABS: COMPLEMENT C3 151 MG/DL (90-180); COMPLEMENT C4 32 MG/DL (10-40)
== END ==
LOC: M LAB REF 16:51
PROVIDERS: ATTEND Internal Medicine Nephrology
DX: M62.82 Rhabdomyolysis (principal); N17.9 Acute kidney failure, unspecified; R80.9 Proteinuria, unspecified

== ENCOUNTER → 2021-11-26 | Outpatient (REF) | payer OTHER ==
[2021-11-26 13:59] LABS: URINE TOTAL PROTEIN 59.9 MG/DL (0-12)
[2021-11-26 22:54] LABS: TOTAL PROTEIN 24 HOUR URINE 1467.5 MG/24HR (50-150); TOTAL VOLUME, URINE 2450 ML
== END ==
LOC: M LAB REF 12:51
PROVIDERS: ATTEND Internal Medicine Nephrology
DX: R80.9 Proteinuria, unspecified (principal)

== ENCOUNTER → 2022-01-28 | Outpatient (CLI) | payer OTHER ==
[~2022-01-28] MED LIST changes: +ESCI5SOL3 PO; +HYDR-3363 PO; +LIDOCAINE 1% MDV 20ML VIAL As Ordered ONE; +PRAZ5CAP PO; +SERT-141 PO; +SUMA100T2 PO
[2022-01-28 14:25] VITALS: BP 117/58
== END ==
LOC: M IRPRO 10:58
PROVIDERS: ATTEND Internal Medicine Nephrology
DX: R80.9 Proteinuria, unspecified (principal); R31.9 Hematuria, unspecified

== ENCOUNTER → 2022-05-07 | Outpatient (REF) | payer OTHER ==
[~2022-05-07] MED LIST changes: -LIDOCAINE 1% MDV 20ML VIAL As Ordered ONE
[2022-05-07 16:51] LABS: APPEARANCE, URINE CLEAR (CLEAR); BACTERIA, URINE AUTO NEGATIVE (NEGATIVE); BILIRUBIN, URINE AUTO NEGATIVE (NEGATIVE); BLOOD, URINE BLOOD 1+ (NEGATIVE); COLOR, URINE YELLOW (YELLOW); GLUCOSE, URINE (UA) AUTO NEGATIVE (NEGATIVE); KETONE, URINE AUTO NEGATIVE (NEGATIVE); LEUKOCYTE ESTERASE, URINE AUTO NEGATIVE (NEGATIVE); MUCUS, URINE SMALL (NEGATIVE); NITRITE, URINE AUTO NEGATIVE (NEGATIVE); PROTEIN, URINE AUTO 2+ mg/dL (NEGATIVE); RBC, URINE AUTO 0 /HPF (0-3); SPECIFIC GRAVITY URINE AUTO 1.012 (1.002-1.035); SQUAMOUS EPITHELIAL CELL UR AU 0 /HPF (0-6); UROBILINOGEN, URINE AUTO 0.2 mg/dL (0.0-2.0); WBC, URINE AUTO 0 /HPF (0-3)
[2022-05-07 17:25] LABS: C REACTIVE PROTEIN QUANTITATIV < 0.30 MG/DL (0.00-0.30); MYOGLOBIN 115 NG/ML (16-116)
[2022-05-07 17:34] LABS: TOTAL PROTEIN,RANDOM URINE 63.3 MG/DL (0.0-12.0)
== END ==
LOC: M SFHCRHEU 14:19
PROVIDERS: ATTEND Internal Medicine
DX: R80.8 Other proteinuria (principal)